=== PATIENT | female | born 1955 | race Two or more races ===

== ENCOUNTER 2020-11-11 07:44 | Outpatient (REF) | payer OTHER, SELFPAY ==
[2020-11-11 08:37] LABS: Estimated Average Glucose 128 mg/dL; Hemoglobin A1c % 6.1 %
[2020-11-11 08:42] LABS: Anion Gap 10 (12-20); Blood Urea Nitrogen 17 mg/dL (9-16); Calcium 9.3 mg/dL (8.4-10.2); Carbon Dioxide 30 mmol/L (22-29); Chloride 100 mmol/L (96-108); Cholesterol 158 mg/dL; Estimated Glomerular Filt Rate > 60; Glucose Fasting 118 mg/dL (60-99); HDL Cholesterol 55 mg/dL; LDL Cholesterol Calculated 80 mg/dl; Potassium 4.3 mmol/L (3.3-5.1); Sodium 136 mmol/L (135-145); Triglycerides 117 mg/dL
== END 2020-11-11 07:45 | disposition home or self-care (01) ==
LOC: HO.LAB 07:44
PROVIDERS: PCP Internal Medicine; Visit Provider Internal Medicine
DX: E78.00 Pure hypercholesterolemia, unspecified (principal); I10 Essential (primary) hypertension; R73.01 Impaired fasting glucose
CPT/HCPCS: 36415; 80048; 80061; 83036

== ENCOUNTER 2020-11-20 15:39 | Outpatient (REF) | payer OTHER, SELFPAY ==
--- NOTE | ~2020-11-20 | MM_ITS ---
EXAMINATION: MM SCREENING DIGITAL BREAST TOMOSYNTHESIS, BILATERAL CLINICAL INFORMATION: Screening. Asymptomatic. The lifetime risk of breast cancer based on the Tyrer-Cuzick Model is 6%. COMPARISON: Mammography: 10/09/2019, 08/28/2018, 08/07/2017 TECHNIQUE: Digital breast tomosynthesis is performed in both the craniocaudal and mediolateral oblique views along with computer-aided detection (CAD). Synthesized 2D images are generated from the tomosynthesis. FINDINGS: There are scattered areas of fibroglandular density (ACR BI-RADS breast composition Category b). Breast tissue borders on heterogeneously dense. There are no significant masses, abnormal calcifications, or other abnormalities. There are biopsy clip markers again present left breast mid upper outer quadrant and right breast central posterior aspect. Regional punctate calcifications central upper inner right breast are stable. There is no interval mass or architectural abnormality or abnormal calcifications. The axilla and skin contours are unremarkable. MM/MM tomosynthesis screening BI IMPRESSION: No significant changes from prior exams. ASSESSMENT: BI-RADS 2: Benign RECOMMENDATION: Routine annual mammography screening. This patient's information was entered into a reminder system with a target due date for their next mammogram.
== END 2020-11-20 15:40 | disposition home or self-care (01) ==
LOC: HO.MAMMO 15:39
PROVIDERS: Visit Provider Internal Medicine
DX: Z12.31 Encounter for screening mammogram for malignant neoplasm of breast (principal)
CPT/HCPCS: 77063; 77067

== ENCOUNTER 2021-05-10 06:42 | Outpatient (REF) | payer OTHER, SELFPAY ==
[2021-05-10 07:06] LABS: MANUAL DIFF FLAG NO
[2021-05-10 07:18] LABS: Basophils Percent Auto 0.6 % (0-2); Eosinophils Absolute Auto 0.1 X10*3/uL (0.0-0.4); Eosinophils Percent Auto 0.8 % (0-4); Hematocrit 41.8 % (37-47); Hemoglobin 13.6 g/dl (12.0-16.0); Imm Gran Abs Auto 0.02 X10*3/uL (0.00-0.03); Imm Gran Pct Auto 0.3 % (0.0-0.4); Lymphocytes Absolute Auto 1.9 X10*3/uL (1.2-4.9); Lymphocytes Percent Auto 29.3 % (20-40); Mean Corpuscular HGB Conc 32.5 g/dl (31.0-35.0); Mean Corpuscular Volume 86.2 fL (80-98); Monocytes Absolute Auto 0.4 X10*3/uL (0.1-1.2); Monocytes Percent Auto 6.1 % (2-11); Neutrophils Absolute Auto 4.1 X10*3/uL (2.0-8.3); Neutrophils Percent Auto 62.9 % (45-73); Platelet Count 237 X10*3/uL (160-400); Red Blood Count 4.85 X10*6/uL (4.20-5.50); Red Cell Distribution Width 12.1 % (11.0-16.0); White Blood Count 6.6 X10*3/uL (4.8-10.8)
[2021-05-10 07:36] LABS: Alanine Aminotransferase 24 U/L (0-31); Albumin Level 4.2 g/dL (3.5-5.0); Alkaline Phosphatase 97 U/L (39-117); Anion Gap 12 (12-20); Aspartate Amino Transferase 20 U/L (5-31); Bilirubin Total 0.3 mg/dL (0.0-1.0); Blood Urea Nitrogen 15 mg/dL (9-16); Calcium 9.7 mg/dL (8.4-10.2); Carbon Dioxide 28 mmol/L (22-29); Chloride 107 mmol/L (96-108); Cholesterol 175 mg/dL; Estimated Glomerular Filt Rate > 60; Glucose Fasting 122 mg/dL (60-99); HDL Cholesterol 57 mg/dL; LDL Cholesterol Calculated 97 mg/dl; Potassium 5.3 mmol/L (3.3-5.1); Sodium 142 mmol/L (135-145); Total Protein 7.2 g/dL (6.5-8.0); Triglycerides 107 mg/dL
[2021-05-10 09:10] LABS: Glucose Urine UA NEG (NEG); Leukocyte Esterase Urine NEG (NEG); Nitrite Urine NEG (NEG); PH 5.5 (5.0-8.0); Specific Gravity - Urine 1.025 (1.005-1.025); Urine Blood NEG (NEG); Urine Ketones NEG (NEG); Urine Protein NEG (NEG-TRACE)
[2021-05-10 09:12] LABS: Appearance Urine CLEAR; Color Urine YELLOW
== END 2021-05-10 06:43 | disposition home or self-care (01) ==
LOC: HO.LAB 06:42
PROVIDERS: PCP Internal Medicine; Visit Provider Internal Medicine
DX: I10 Essential (primary) hypertension (principal); E78.00 Pure hypercholesterolemia, unspecified; R73.01 Impaired fasting glucose
CPT/HCPCS: 36415; 80053; 80061; 81003; 85025

== ENCOUNTER 2021-11-23 07:41 | Outpatient (REF) | payer OTHER, SELFPAY ==
--- NOTE | ~2021-11-23 | MM_ITS ---
EXAMINATION: MM SCREENING DIGITAL BREAST TOMOSYNTHESIS, BILATERAL CLINICAL INFORMATION: Screening. Asymptomatic. The lifetime risk of breast cancer based on the Tyrer-Cuzick Model is 6%. COMPARISON: Mammography: 11/20/2020, 10/09/2019, 08/28/2018 TECHNIQUE: Digital breast tomosynthesis is performed in both the craniocaudal and mediolateral oblique views along with computer-aided detection (CAD). Synthesized 2D images are generated from the tomosynthesis. FINDINGS: There are scattered areas of fibroglandular density (ACR BI-RADS breast composition Category b). Breast tissue composition borders on heterogeneously dense. Parenchymal pattern is similar to prior exams and there is no interval mass or architectural abnormality or developing density. Left breast again shows clip marker mid upper outer quadrant and right breast with marker posterior central inner breast. Calcifications central inner right breast are stable. There are a few scattered calcifications otherwise both breasts similar to prior exams. No significant changes. MM/MM tomosynthesis screening BI IMPRESSION: No significant changes from prior studies. ASSESSMENT: BI-RADS 2: Benign RECOMMENDATION: Routine annual mammography screening. This patient's information was entered into a reminder system with a target due date for their next mammogram.
== END 2021-11-23 07:42 | disposition home or self-care (01) ==
LOC: HO.MAMMO 07:41
PROVIDERS: Visit Provider Internal Medicine
DX: Z12.31 Encounter for screening mammogram for malignant neoplasm of breast (principal)
CPT/HCPCS: 77063; 77067

== ENCOUNTER 2022-02-15 07:40 | Outpatient (REF) | payer OTHER, SELFPAY ==
[2022-02-15 07:54] LABS: MANUAL DIFF FLAG NO
[2022-02-15 08:02] LABS: Basophils Absolute Auto 0.1 X10*3/uL (0.0-0.2); Eosinophils Absolute Auto 0.1 X10*3/uL (0.0-0.4); Eosinophils Percent Auto 1.2 % (0-4); Hematocrit 42.3 % (37.0-47.0); Hemoglobin 13.9 g/dl (12.0-16.0); Imm Gran Abs Auto 0.01 X10*3/uL (0.00-0.03); Imm Gran Pct Auto 0.2 % (0.0-0.4); Lymphocytes Absolute Auto 1.8 X10*3/uL (1.2-4.9); Lymphocytes Percent Auto 30.5 % (20-40); Mean Corpuscular HGB Conc 32.9 g/dl (31.0-35.0); Mean Corpuscular Hemoglobin 28.3 pg (27.0-33.0); Mean Corpuscular Volume 86.2 fL (80.0-98.0); Mean Platelet Volume 10.1 fL (9.4-12.3); Monocytes Absolute Auto 0.4 X10*3/uL (0.1-1.2); Monocytes Percent Auto 5.8 % (2-11); Neutrophils Absolute Auto 3.7 x10*3/uL (2.0-8.3); Neutrophils Percent Auto 61.3 % (45-73); Platelet Count 217 X10*3/uL (160-400); Red Blood Count 4.91 X10*6/uL (4.20-5.50); Red Cell Distribution Width 12.1 % (11.0-16.0)
[2022-02-15 08:17] LABS: Estimated Average Glucose 131 mg/dL; Hemoglobin A1c % 6.2 %
[2022-02-15 08:27] LABS: Alanine Aminotransferase 26 U/L (0-31); Albumin Level 3.9 g/dL (3.5-5.0); Alkaline Phosphatase 93 U/L (39-117); Anion Gap 11 (12-20); Aspartate Amino Transferase 20 U/L (5-31); Bilirubin Total 0.4 mg/dL (0.0-1.0); Blood Urea Nitrogen 11 mg/dL (9-16); Calcium 9.6 mg/dL (8.4-10.2); Carbon Dioxide 28 mmol/L (22-29); Chloride 104 mmol/L (96-108); Cholesterol 161 mg/dL; Estimated Glomerular Filt Rate > 60; Glucose Fasting 124 mg/dL (60-99); HDL Cholesterol 52 mg/dL; LDL Cholesterol Calculated 94 mg/dl; Sodium 138 mmol/L (135-145); Total Protein 6.9 g/dL (6.5-8.0); Triglycerides 79 mg/dL
[2022-02-15 08:49] LABS: TSH reflex Free T4 1.24 uIU/mL (0.32-4.0); Vitamin D 25-OH Total 49.1 ng/mL (>30)
[2022-02-15 09:26] LABS: Appearance Urine CLEAR; Color Urine YELLOW; Glucose Urine UA NEG (NEG); Leukocyte Esterase Urine TRACE (NEG); Nitrite Urine NEG (NEG); Specific Gravity - Urine 1.015 (1.005-1.025); Urine Blood NEG (NEG); Urine Ketones NEG (NEG); Urine Protein NEG (NEG-TRACE)
[2022-02-15 09:44] LABS: RBC Urine 0 /HPF (0); Squamous Epithelial Cell Urine TRACE /LPF; WBC Urine 0-2 /HPF (0-4)
== END 2022-02-15 07:41 | disposition home or self-care (01) ==
LOC: HO.LAB 07:40
PROVIDERS: PCP Internal Medicine; Visit Provider Internal Medicine
DX: I10 Essential (primary) hypertension (principal); E78.00 Pure hypercholesterolemia, unspecified; E87.5 Hyperkalemia; R73.01 Impaired fasting glucose; E55.9 Vitamin D deficiency, unspecified
CPT/HCPCS: 36415; 80053; 80061; 81001; 82306; 83036; 84443; 85025

== ENCOUNTER 2022-12-01 08:40 | Outpatient (REF) | payer OTHER, SELFPAY ==
--- NOTE | ~2022-12-01 | MM_ITS ---
EXAMINATION: MM SCREENING DIGITAL BREAST TOMOSYNTHESIS, BILATERAL CLINICAL INFORMATION: Screening. Asymptomatic. The lifetime risk of breast cancer based on the Tyrer-Cuzick Model is 6.1%. COMPARISON: Mammography: November 23, 2021 and studies dating back to July 25, 2016 TECHNIQUE: Digital breast tomosynthesis is performed in both the craniocaudal and mediolateral oblique views along with computer-aided detection (CAD). Synthesized 2D images are generated from the tomosynthesis. FINDINGS: The breasts are heterogeneously dense, which may obscure small masses (ACR BI-RADS breast composition Category c). There are no significant masses, abnormal calcifications, or other abnormalities. MM/MM tomosynthesis screening BI IMPRESSION: No significant changes ASSESSMENT: BI-RADS 1: Negative RECOMMENDATION: Routine annual mammography screening. This patient's information was entered into a reminder system with a target due date for their next mammogram.
== END 2022-12-01 08:41 | disposition home or self-care (01) ==
LOC: HO.MAMMO 08:40
PROVIDERS: Visit Provider Internal Medicine
DX: Z12.31 Encounter for screening mammogram for malignant neoplasm of breast (principal)
CPT/HCPCS: 77063; 77067

== ENCOUNTER 2023-02-14 07:50 | Outpatient (REF) | payer OTHER, SELFPAY ==
--- NOTE | ~2023-02-14 | XR_ITS ---
EXAMINATION: XR FOOT, LEFT CLINICAL INFORMATION: Heel pain COMPARISON: None available. TECHNIQUE: AP, lateral, and oblique views of the left foot. FINDINGS: There is no evidence of acute fracture or dislocation of the left foot. No destructive bony lesions identified. Joint spaces are maintained. Plantar and Achilles calcaneal spurs present. There appears be a small erosion about the dorsal aspect of the first metatarsal head. XR/XR foot LT min 3V IMPRESSION: Calcaneal spurs. Small erosion dorsal aspect first metatarsal head.
[2023-02-14 08:08] LABS: MANUAL DIFF FLAG NO
[2023-02-14 08:29] LABS: Basophils Absolute Auto 0.1 X10*3/uL (0.0-0.2); Basophils Percent Auto 0.8 % (0-2); Eosinophils Absolute Auto 0.1 X10*3/uL (0.0-0.4); Eosinophils Percent Auto 1.3 % (0-4); Hematocrit 42.5 % (37.0-47.0); Hemoglobin 14.1 g/dl (12.0-16.0); Imm Gran Abs Auto 0.01 X10*3/uL (0.00-0.03); Imm Gran Pct Auto 0.2 % (0.0-0.4); Lymphocytes Absolute Auto 2.1 X10*3/uL (1.2-4.9); Lymphocytes Percent Auto 33.2 % (20-40); Mean Corpuscular HGB Conc 33.2 g/dl (31.0-35.0); Mean Corpuscular Hemoglobin 28.3 pg (27.0-33.0); Mean Corpuscular Volume 85.3 fL (80.0-98.0); Mean Platelet Volume 9.8 fL (9.4-12.3); Monocytes Absolute Auto 0.4 X10*3/uL (0.1-1.2); Monocytes Percent Auto 5.8 % (2-11); Neutrophils Absolute Auto 3.7 x10*3/uL (2.0-8.3); Neutrophils Percent Auto 58.7 % (45-73); Platelet Count 246 X10*3/uL (160-400); Red Blood Count 4.98 X10*6/uL (4.20-5.50); Red Cell Distribution Width 12.2 % (11.0-16.0); White Blood Count 6.4 X10*3/uL (4.8-10.8)
[2023-02-14 08:35] LABS: Estimated Average Glucose 128 mg/dL; Hemoglobin A1c % 6.1 %
[2023-02-14 09:00] LABS: Alanine Aminotransferase 28 U/L (0-31); Alkaline Phosphatase 90 U/L (39-117); Anion Gap 10 (12-20); Aspartate Amino Transferase 20 U/L (5-31); Bilirubin Total 0.7 mg/dL (0.0-1.0); Blood Urea Nitrogen 15 mg/dL (9-16); Calcium 9.3 mg/dL (8.4-10.2); Carbon Dioxide 30 mmol/L (22-29); Chloride 104 mmol/L (96-108); Cholesterol 177 mg/dL; Estimated Glomerular Filt Rate > 60; Glucose Fasting 120 mg/dL (60-99); HDL Cholesterol 52 mg/dL; LDL Cholesterol Calculated 103 mg/dl; Potassium 4.3 mmol/L (3.3-5.1); Sodium 140 mmol/L (135-145); Triglycerides 112 mg/dL
[2023-02-14 09:19] LABS: TSH reflex Free T4 1.44 uIU/mL (0.32-4.0); Vitamin D 25-OH Total 43.9 ng/mL (>30)
[2023-02-14 09:43] LABS: Appearance Urine Clear; Color Urine Yellow; Glucose Urine UA Negative (Negative); Leukocyte Esterase Urine Moderate (2+) (Negative); Nitrite Urine Negative (Negative); PH 6.5 (5.0-9.0); UMIC TRIGGER UACC YES; Urine Blood Negative (Negative); Urine Ketones Negative (Negative); Urine Protein Negative (Neg-Trace)
[2023-02-14 10:28] LABS: Bacteria Urine 1+ (None Seen); Hyaline Casts Urine 0-2 /LPF (0-2); RBC Urine 0-2 /HPF (0-2); WBC Urine 0-5 /HPF (0-5)
== END 2023-02-14 07:51 | disposition home or self-care (01) ==
LOC: HO.LAB 07:50
PROVIDERS: PCP Internal Medicine; Visit Provider Internal Medicine
DX: E78.00 Pure hypercholesterolemia, unspecified (principal); E11.9 Type 2 diabetes mellitus without complications; I10 Essential (primary) hypertension; E55.9 Vitamin D deficiency, unspecified; M79.672 Pain in left foot
CPT/HCPCS: 36415; 73630; 80053; 80061; 81001; 82306; 83036; 84443; 85025

== ENCOUNTER 2023-05-09 08:48 | Outpatient (AMB) | payer OTHER, SELFPAY ==
--- NOTE | 2023-05-09 09:30 | A.OFFVIS_ITS ---
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 Patient is not diabetic, not a smoker, no hx blood clots. 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 Allergies No Known Allergies [No Known Allergies*] Allergy (Verified 05/09/23 09:34) HPI BUSINESS EXECUTIVE VV HPI Details Very pleasant 67-year-old angu[place] female patient presents for painful varicose veins. Complaints include pain over varicosities, swelling of lower extremities, cramping, fatigue, and heaviness of the lower extremities. 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 It is noted more so in right leg. Patient denies any previous venous surgery or injections. Patient denies any history of DVT/ PE. Patient denies any history of phlebitis. Trial of compression includes - [id number] They now present for vascular evaluation regarding their varicose veins. [facility] Medical History Benign essential hypertension Hyperkalemia Impaired fasting glucose Pure hypercholesterolemia Surgical History History of colonoscopy Family History Father No problems noted. Mother Dementia Family/Other Diabetes Hypertension Social History Housing: Condominium Alcohol intake: never Patient Tobacco Use Status: Never used Tobacco e-Cigarette/Vaping Use: Never Used Second Hand Smoke Exposure: Yes service: No Current occupational status: employed Cognitive needs: No Hearing needs: No Vision needs: No Review of Systems Const Reports as per HPI ENT Reports no additional complaints Card Denies chest pain, Denies chest pain at rest and Denies chest pain with activity Resp Denies chest congestion and Denies cough GI Reports no additional complaints Musc Details: pain over varicosities, aching of lower extremities, swelling, cramping, heaviness and tiredness, itching Denies abnormal gait Skin/Breast Reports pruritus and Denies wounds Neuro Reports no additional complaints and Denies abnormal gait Psych Denies no additional complaints Physical Exam Const General: cooperative, healthy appearing and comfortable Orientation/consciousness: oriented to person, oriented to place and oriented to time Neck Carotids: no bruits Chest Chest palpation & inspection: normal inspection of the chest and normal palpation of entire chest wall Resp Effort & Inspection: normal respiratory effort and able to speak in complete sentences Cardio Rate: regular rate Heart sounds: S1 normal heart sound present and S2 normal heart sound present Peripheral pulses: Peripheral pulses 2+ throughout GI Inspection: Yes normal to inspection Skin Other: +2 edema, large rope-like varicosities greater than 4 mm right calf and thigh CEAP Classification C4 - skin color changes Ep - Etiology Primary As - superficial veins P - reflux General skin exam: dry skin Neuro General: oriented to person, oriented to place and oriented to time Extrem Right lower extremity: full ROM, normal capillary refill and edema Left lower extremity: full ROM, normal capillary refill and edema Psych Mental Status: mental status grossly normal Assessment & Plan Assessment & Plan (1) Varicose veins of right lower extremity with inflammation: Code(s): I83.11 - Varicose veins of right lower extremity with inflammation Plan: In short, the patient has evidence of venous insufficiency. I have discussed the pathophysiology with the patient. In addition I have provided informational material regarding venous disease to the patient. We have discussed conservative measures including compression, elevation, and exercise. I have also provided a handout regarding appropriate use of compression stockings and where to purchase good compression stockings as well. I have taken the liberty of ordering venous insufficiency testing with the patient. They will follow up with me after testing. The patient had an opportunity to ask questions regarding the treatment plan. All questions were answered. Imaging studies, laboratory studies and physical exam results were discussed and reviewed in detail. No major barriers to understanding were identified. The patient expressed understanding and agreement with the above treatment plan. The patient is aware they should contact our office by phone for worsening of the current condition or the appearance of new symptoms. Thank you for allowing me to participate in the vascular care of this patient. If you have any questions or concerns regarding the treatment for the above condition please do not hesitate to contact me. The office telephone contact is [phone]. This note is constructed using voice recognition software. While every effort has been made to ensure accuracy, flask fitter errors may have been included. Thank you for allowing me to participate in the care of your patient. Yours sincerely, Mahesh Yanez MD, FACS, R.P.V.I. Orders: Orders US venous duplex LE BI 1 Week I83.11 - Varicose veins of right lower extremity with inflammation Coding Level of Care Code New Pt Level 4 (38648) Diagnoses Varicose veins of right lower extremity with inflammation I83.11
== END 2023-05-09 10:30 | disposition home or self-care (01) ==
PROVIDERS: PCP Internal Medicine; Visit Provider Surgery Vascular Surgery
DX: I83.11 Varicose veins of right lower extremity with inflammation (principal)
CPT/HCPCS: 99204

== ENCOUNTER → 2023-05-09 08:48 | Outpatient (BNVA) | payer OTHER, SELFPAY | PROVIDERS: PCP Internal Medicine; Visit Provider Surgery Vascular Surgery ==

== ENCOUNTER 2023-05-15 12:30 | Outpatient (REF) | payer OTHER, SELFPAY ==
--- NOTE | ~2023-05-15 | US_ITS ---
EXAMINATION: US LOWER EXTREMITY VENOUS (REFLUX EXAM), BILATERAL CLINICAL INDICATION: Chronic venous insufficiency with lower extremity varicose veins with inflammation COMPARISON: None. TECHNIQUE: Color flow triplex imaging and compression Doppler was performed to evaluate both the deep and the superficial systems bilaterally. To evaluate the superficial system, the examination was performed in the upright position. Color-flow Doppler ultrasound and compression ultrasound were utilized. In addition, maneuvers were utilized to demonstrate reflux. FINDINGS: 1. DEEP VENOUS ULTRASOUND OF THE RIGHT LOWER EXTREMITY: Common Femoral Vein: Compressible, normal respiratory variation and augmented flow. Femoral Vein: Compressible, normal color flow and augmentation. Popliteal Vein: Compressible, normal augmentation. Deep Reflux: There is no evidence of reflux in the deep system in either the common femoral vein or the popliteal vein. There is no evidence of a Magaña's cyst. 2. SUPERFICIAL ULTRASOUND WITH DOPPLER OF RIGHT LOWER EXTREMITY: GREAT SAPHENOUS VEIN: Saphenofemoral Junction: 0.8 cm; Reflux: 1100 ms Proximal Thigh: 0.5 cm; Reflux: 1468 ms Mid Thigh: 0.5 cm; Reflux: 2120 ms Above Knee: 0.2 cm; Reflux: 968 ms At Knee: 0.2 cm; Reflux: 1316 ms Below Knee: 0.4 cm; Reflux: 1028 ms Mid Calf: 0.1 cm; Reflux: 0 ms Ankle: 0.1 cm; Reflux: 0 ms DUPLICATED MEDIAL GREAT SAPHENOUS VEIN: Diameter: None imaged Reflux: NA DUPLICATED LATERAL GREAT SAPHENOUS VEIN: Diameter: 0.2 cm Reflux: None SMALL SAPHENOUS VEIN: Proximal: 0.2 cm; Reflux: 0 ms Distal: 0.2 cm; Reflux: 0 ms VEIN OF GIACOMINI: Size: NA Reflux: NA PERFORATORS: Location: Distal calf Size: 0.3 cm Reflux: None VARICOSITIES: Location: Distal thigh and proximal calf arising from the great saphenous vein Size: 0.4 to 0.6 cm Reflux: Ranging from 892 ms to 1292 ms 3. DEEP VENOUS ULTRASOUND OF THE LEFT LOWER EXTREMITY: Common Femoral Vein: Compressible, normal respiratory variation and augmented flow. Femoral Vein: Compressible, normal color flow and augmentation. Popliteal Vein: Compressible, normal augmentation. Deep Reflux: There is no evidence of reflux in the deep system in either the common femoral vein or the popliteal vein. There is no evidence of a Magaña's cyst. 4. SUPERFICIAL ULTRASOUND WITH DOPPLER OF LEFT LOWER EXTREMITY: GREAT SAPHENOUS VEIN: Saphenofemoral Junction: 0.7 cm; Reflux: 0 ms Proximal Thigh: 0.3 cm; Reflux: 0 ms Mid Thigh: 0.2 cm; Reflux: 1564 ms Above Knee: 0.2 cm; Reflux: 0 ms At Knee: 0.1 cm; Reflux: 0 ms Below Knee: 0.2 cm; Reflux: 708 ms Mid Calf: 0.1 cm; Reflux: 0 ms Ankle: 0.2 cm; Reflux: 0 ms DUPLICATED MEDIAL GREAT SAPHENOUS VEIN: Diameter: None imaged Reflux: NA DUPLICATED LATERAL GREAT SAPHENOUS VEIN: Diameter: 0.3 Reflux: NA SMALL SAPHENOUS VEIN: Proximal: 0.3 cm; Reflux: 0 ms Distal: 0.2 cm; Reflux: 0 ms VEIN OF GIACOMINI: Size: NA Reflux: NA PERFORATORS: Location: Mid calf Size: 0.4 cm Reflux: On VARICOSITIES: Location: None significant Size: NA Reflux: NA US/US venous duplex LE BI IMPRESSION: Right: Severe reflux throughout the right great saphenous vein with large branching varicosities in the distal thigh and calf. Left: Segmental areas of reflux in the left great saphenous vein in the mid to thigh and proximal calf. Greater saphenous vein is otherwise normal in size. No significant varicosities in the left lower extremity
== END 2023-05-15 12:31 | disposition home or self-care (01) ==
LOC: HO.US 12:30
PROVIDERS: PCP Internal Medicine; Visit Provider Surgery Vascular Surgery
DX: I83.11 Varicose veins of right lower extremity with inflammation (principal)
CPT/HCPCS: 93970

== ENCOUNTER 2023-06-20 10:34 | Outpatient (AMB) | payer OTHER, SELFPAY ==
--- NOTE | 2023-06-20 10:38 | MHC.OFFVIS ---
Intake Vital Signs 06/20/23 10:44 Height 5 ft 1 in Weight 130 lb BMI 24.6 Intake Visit Reasons: Follow up 05/22 Intake Note: fu 1 month VV pt states veins feel like they are growing but she does not feel any pain or swelling at the moment.she here today to discus venous ultrasound results Allergies No Known Allergies [No Known Allergies*] Allergy (Verified 06/20/23 10:44) HPI Follow up 05/22 HPI Details Very pleasant 67-year-old female presents for follow-up regarding venous insufficiency. Her right leg in particular has been a source of pain and discomfort. She has significant swelling of the right lower extremity. 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 She now presents for follow-up with venous insufficiency testing. Of note compression stockings have provided minimal relief. [facility] Medical History Benign essential hypertension Hyperkalemia Impaired fasting glucose Pure hypercholesterolemia Surgical History History of colonoscopy Family History Father No problems noted. Mother Dementia Family/Other Diabetes Hypertension Social History Housing: Condominium Alcohol intake: never Patient Tobacco Use Status: Never used Tobacco e-Cigarette/Vaping Use: Never Used Second Hand Smoke Exposure: Yes service: No Current occupational status: employed Cognitive needs: No Hearing needs: No Vision needs: No Review of Systems Const Reports as per HPI ENT Reports no additional complaints Card Denies chest pain, Denies chest pain at rest and Denies chest pain with activity Resp Denies chest congestion and Denies cough GI Reports no additional complaints Musc Details: pain over varicosities, aching of lower extremities, swelling, cramping, heaviness and tiredness, itching Denies abnormal gait Skin/Breast Reports pruritus and Denies wounds Neuro Reports no additional complaints and Denies abnormal gait Psych Denies no additional complaints Physical Exam Vital Signs: BMI result Body Mass Index 24.6 Const General: cooperative, healthy appearing and comfortable Orientation/consciousness: oriented to person, oriented to place and oriented to time Neck Carotids: no bruits Chest Chest palpation & inspection: normal inspection of the chest and normal palpation of entire chest wall Resp Effort & Inspection: normal respiratory effort and able to speak in complete sentences Cardio Rate: regular rate Heart sounds: S1 normal heart sound present and S2 normal heart sound present Peripheral pulses: Peripheral pulses 2+ throughout GI Inspection: Yes normal to inspection Skin Other: +2 edema, large rope-like varicosities greater than 4 mm CEAP Classification C4 - skin color changes Ep - Etiology Primary As - superficial veins P - reflux General skin exam: dry skin Neuro General: oriented to person, oriented to place and oriented to time Extrem Right lower extremity: full ROM, normal capillary refill and edema Left lower extremity: full ROM, normal capillary refill and edema Psych Mental Status: mental status grossly normal Results Reviewed Results Reviewed: Brief summary of venous insufficiency testing is as follows: right great saphenous vein: Positive right small saphenous vein: negative right accessory vein: none present left great saphenous vein: Positive left small saphenous vein: negative left accessory vein: none present Please note there is no evidence of any venous aneurysms or significant tortuosity Assessment & Plan Assessment & Plan (1) Varicose veins of right lower extremity with inflammation: Code(s): I83.11 - Varicose veins of right lower extremity with inflammation Plan: This patient has varicose veins with inflammation. They continue to be a source of discomfort for the patient. The patient has tried conservative treatment with compression, leg elevation and exercise program for over 3 months time. They have been compliant with all treatment. This has provided minimal relief for the patient. I do not anticipate this course of treatment will alter the underlying etiology. The patient has been scheduled for lower extremity venous treatment inclusive of --- right great saphenous vein Cyanoacralate ablation. Risks, benefits, and complications of this procedure has been discussed in detail with the patient including but not limited to bleeding, infection, and the development of a DVT. The patient has demonstrated a clear understanding and has consented. We will schedule the patient as soon as possible. Thank you for allowing us to participate in this patient's care. If there are any questions or concerns please do not hesitate to contact us. Coding Level of Care Code Est Pt Level 4 (98177) Diagnoses Varicose veins of right lower extremity with inflammation I83.11
[2023-06-20 10:44] VITALS: BMI 24.6
== END 2023-06-20 11:48 | disposition home or self-care (01) ==
PROVIDERS: PCP Internal Medicine; Visit Provider Surgery Vascular Surgery
DX: I83.11 Varicose veins of right lower extremity with inflammation (principal)
CPT/HCPCS: 99214

== ENCOUNTER → 2023-06-20 10:34 | Outpatient (BNVA) | payer OTHER, SELFPAY | PROVIDERS: PCP Internal Medicine; Visit Provider Surgery Vascular Surgery ==

== ENCOUNTER 2023-07-21 07:44 | Outpatient (AMB) | payer OTHER, SELFPAY ==
[2023-07-21 07:54] VITALS: BMI 24.6
--- NOTE | 2023-07-21 07:54 | MHC.OFFVIS ---
Intake Vital Signs 07/21/23 07:54 Height 5 ft 1 in Weight 130 lb BMI 24.6 Intake Visit Reasons: Right GSV Venaseal Allergies No Known Allergies [No Known Allergies*] Allergy (Verified 07/21/23 07:55) [facility] Medical History Hyperkalemia Impaired fasting glucose Benign essential hypertension Pure hypercholesterolemia Surgical History History of colonoscopy Family History Father No problems noted. Mother Dementia Family/Other Diabetes Hypertension Social History Housing: Condominium Alcohol intake: never Patient Tobacco Use Status: Never used Tobacco e-Cigarette/Vaping Use: Never Used Second Hand Smoke Exposure: Yes service: No Current occupational status: employed Cognitive needs: No Hearing needs: No Vision needs: No Physical Exam Vital Signs: BMI result Body Mass Index 24.6 Office Procedures Vascular Office Procedure Details Details: Diagnosis: Right Leg varicose veins with inflammation Procedure: Endovenous Ablation of the right Great Saphenous Vein with VenaSeal Closure System Anesthesia: Local infiltration 5 cc, Estimated Blood Loss: min Specimen: none Duplex ultrasound was used to map out the insufficient saphenous vein, and access was determined and marked on the overlying skin. The depth and diameter of the vein(s) to be treated was documented. The patient was placed supine on the procedure table and the leg was prepped and draped using sterile technique. Ultasound guidance was again used to localize the access site. 1% lidocaine was injected as a local anesthetic in the subcutaneous tissues at the target location in the GSV in the lower leg. Using ultrasound guidance, access was gained at this location with the 19 gauge thin walled access needle and followed by introduction of a short guidewire, location confirmed with ultrasound. A small, 3 mm incision was made at the access site to allow for introduction and placement of the 7 Fr x7cm introducer/dilator. The dilator and guidewire were removed. The 0.035 guidewire from the VenaSeal kit was then introduced and positioned at the saphenofemoral junction using ultrasound guidance. The 80 cm 7 Fr introducer sheath/dilator was positioned 5cm from the saphenofemoral junction. The guidewire and dilator were removed, and the remaining sheath was flushed with sterile saline, with the syringe remaining in place prior to the next steps. The cyanoacrylate adhesive was precisely primed into the 5 F delivery catheter and this catheter/syringe combination was attached within the dispenser gun. This assembly was introduced through the 7F sheath and positioned 5 cm caudal of the saphenofemoral junction under ultrasound guidance. The steps from the IFU were followed for dispensing amounts, locations and compression times, 2 aliquots proximally with 3 minutes of compression, and 1 aliquot every 3 cm distally with 30 sec of compression along the course of the vessel. Following the last injection and compression sequence, the catheter and introducer sheath were pulled out from the access site. Hemostasis was achieved with manual compression and an adhesive bandage was applied to the incision. Ultrasound confirmed complete coaptation and closure of the treated segments of the GSV, and the absence of any DVT at the saphenofemoral junction. Treatment time was approximately 6 minutes and the vein length treated was 32 cm. The drapes were removed and the patient cleaned and prepared for discharge. Post op ultrasound check is scheduled for 48-72 hours and the patient was given written post-op instructions. 21035 - Endoven Ther Chem Adhes 1st All charges added?: Procedure code (CPT) selection complete Coding Level of Care Code Procedure Only CPT Codes Details - Vascular 3: 68666 - Endoven Ther Chem Adhes 1st ([id number])
== END 2023-07-21 08:58 | disposition home or self-care (01) ==
PROVIDERS: PCP Internal Medicine; Visit Provider Surgery Vascular Surgery
DX: I83.11 Varicose veins of right lower extremity with inflammation (principal)
CPT/HCPCS: 36482

== ENCOUNTER → 2023-07-21 07:44 | Outpatient (BNVA) | payer OTHER, SELFPAY | PROVIDERS: PCP Internal Medicine; Visit Provider Surgery Vascular Surgery | DX: I83.11 Varicose veins of right lower extremity with inflammation (principal) | CPT/HCPCS: 36482 ==

== ENCOUNTER 2023-07-24 09:41 | Outpatient (REF) | payer OTHER, SELFPAY ==
--- NOTE | ~2023-07-24 | US_ITS ---
EXAMINATION: US VENOUS ULTRASOUND WITH DOPPLER LOWER EXTREMITY, RIGHT CLINICAL INFORMATION: Pain in right leg. Rule out DVT right lower extremity status post right great saphenous vein Venaseal 07/21/2023. COMPARISON: Venous ultrasound 05/15/2023. TECHNIQUE: Ultrasound of the deep veins is performed from the hip to the calf with compression sonography and color and pulse Doppler assessment. Spectral analysis with color-flow imaging is performed. FINDINGS: There is normal venous compression and respiratory variation and augmented flow. The visualized common femoral vein, superficial femoral vein, profunda femoral vein, popliteal vein, and the trifurcation region shows no evidence of deep venous thrombosis. There is no significant popliteal fossa cyst. The great saphenous vein is closed beginning 2.0 cm below the saphenofemoral junction. US/US venous duplex LE RT IMPRESSION: The great saphenous vein is closed getting 2.0 cm below the saphenofemoral junction. No DVT demonstrated in the right lower extremity.
== END 2023-07-24 09:42 | disposition home or self-care (01) ==
LOC: HO.US 09:41
PROVIDERS: PCP Internal Medicine; Visit Provider Surgery Vascular Surgery
DX: M79.604 Pain in right leg (principal)
CPT/HCPCS: 93971

== ENCOUNTER 2023-08-03 12:27 | Outpatient (AMB) | payer OTHER, SELFPAY ==
--- NOTE | 2023-08-03 12:59 | A.OFFVIS_ITS ---
Intake Intake Visit Reasons: 2 week follow up Right GSV Venaseal 07/21/23 Intake Note: 2 week fu right GSV Venaseal on 07/21/23 and hx of on 05/15/23 Pt states she doing good and is already started to see the improvement from the procedure Allergies No Known Allergies [No Known Allergies*] Allergy (Verified 08/03/23 13:01) HPI 2 week follow up Right GSV Venaseal 07/21/23 HPI Details Very pleasant 67-year-old female presents for follow-up status post right great saphenous vein ablation. She reports she is doing extremely well. She is ambulating much better. She continues to work at a [employer]. She now presents for routine postprocedure follow-up. Of note postprocedure ultrasound was negative for DVT. [facility] Medical History Hyperkalemia Impaired fasting glucose Benign essential hypertension Pure hypercholesterolemia Surgical History History of colonoscopy Family History Father No problems noted. Mother Dementia Family/Other Diabetes Hypertension Social History Housing: Condominium Alcohol intake: never Patient Tobacco Use Status: Never used Tobacco e-Cigarette/Vaping Use: Never Used Second Hand Smoke Exposure: Yes service: No Current occupational status: employed Cognitive needs: No Hearing needs: No Vision needs: No Review of Systems Const All systems reviewed & are unremarkable except as noted in HPI and below Reports no additional complaints ENT Reports Normal hearing present Card Denies chest pain, Denies chest pain at rest, Denies chest pain with activity and Denies pedal edema Resp Denies cough GI Denies abdominal pain Musc Denies abnormal gait, Denies muscle cramps and Denies radiating pain into limb Skin/Breast Denies skin ulcer and Denies wounds Neuro Reports Normal hearing present and Denies abnormal gait Psych Reports no additional complaints Physical Exam Const General: cooperative, healthy appearing and comfortable Orientation/consciousness: oriented to person, oriented to place and oriented to time HEENT Head: Yes normal to inspection Neck Neck: Yes normal visual inspection Carotids: no bruits Chest Chest palpation & inspection: normal inspection of the chest Resp Effort & Inspection: normal respiratory effort and able to speak in complete sentences Auscultation: clear to auscultation bilaterally, no crackles, no rales, no rhonchi and no wheezes Cardio Rate: regular rate Rhythm: regular rhythm Heart sounds: S1 normal heart sound present and S2 normal heart sound present Bruits: no carotid bruits Peripheral pulses: Peripheral pulses 2+ throughout GI Inspection: Yes normal to inspection Skin Wounds: no wounds Hair: normal Neuro General: oriented to person, oriented to place and oriented to time Cranial nerves: Yes CN's II-XII intact bilaterally and Yes Normal hearing present Cognition (Neuro): normal cognition Motor exam (neuro): 5/5 motor strength present throughout Extrem Other: venous exam: No significant superficial varicosities or spider telangiectasias, minimal edema General: No clubbing, No cyanosis and No edema Psych Appearance: grossly normal Mental Status: mental status grossly normal Speech and movement: Normal speech and movement present Assessment & Plan Assessment & Plan (1) Varicose veins of right lower extremity with inflammation: Comment: 07/21/2023 - right great saphenous vein Cyanoacralate ablation Code(s): I83.11 - Varicose veins of right lower extremity with inflammation Plan: The patient has done extremely well with all venous treatments. Patient's may often experience postprocedure phlebitic episodes and I have discussed with the patient use of warm compresses and NSAIDS if tolerated for pain discomfort. In addition, I have discussed continued conservative measures including use of compression, leg elevation, and exercise. The patient was also given an information sheet regarding appropriate use of compression stockings and future purchases. Thank you for allowing us to care for your patient with venous disease. Coding Level of Care Code Global (68216) Diagnoses Varicose veins of right lower extremity with inflammation I83.11
== END 2023-08-03 13:17 | disposition home or self-care (01) ==
PROVIDERS: PCP Internal Medicine; Visit Provider Surgery Vascular Surgery
DX: I83.11 Varicose veins of right lower extremity with inflammation (principal); Z09 Encounter for follow-up examination after completed treatment for conditions other than malignant neoplasm
CPT/HCPCS: 99213

== ENCOUNTER → 2023-08-03 12:27 | Outpatient (BNVA) | payer OTHER, SELFPAY | PROVIDERS: PCP Internal Medicine; Visit Provider Surgery Vascular Surgery ==

== ENCOUNTER 2023-08-10 09:50 | Outpatient (AMB) | payer OTHER, SELFPAY ==
[2023-08-10 10:02] VITALS: BP 118/76; PULSE 101; O2SAT 98; BMI 24.0
--- NOTE | 2023-08-10 10:02 | MHC.PC.OV ---
Vital Signs 08/10/23 10:02 Height 5 ft 1 in Weight 127 lb 0.6 oz BMI 24.0 BP 118/76 Blood Pressure Location Lt brachial Position Sitting Pulse 101 H Pulse Source Pulse Oximeter Pulse Oximetry (%) 98 Oxygen Delivery Method Room Air Intake Visit Reasons: right sided neck and shoulder pain Intake Note: pt states senior living right shoulder pain and right leg pain due to over work Health And Wellness Coordinator Required: No Allergies No Known Allergies [No Known Allergies*] Allergy (Verified 08/10/23 10:09) Tobacco use date assessed: 08/10/23 Fall risk assessment: No Falls in past year Last assessed Fall Risk: 08/10/23 HPI HPI Comments History of Present Illness Details 67-year-old female H significant for hypercholesterolemia, htn, IFG and varicose veins.Patient presents today for right sided neck and shoulder pain x 1 week. Patient called office to notify PCP of this last week and cyclobenzaprine was prescribed. Patient reports that she took cyclobenzaprine which has resolved her shoulder pain. Patient denies shoulder pain at this time. However patient does report that she does have right-sided buttock pain, denies back pain. Denies any numbness or tingling down right leg or bowel or bladder incontinence. 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 So this exacerbated her shoulder pain as well as pain and right buttock. Patient requesting a note for work to excuse her from cleaning the trash bins as this exacerbates her pain so much that usually she can not return to work the next day due to it. Work note given to excuse from cleaning trash bins. Patient able to perform all other job functions [facility] Medical History Hyperkalemia Impaired fasting glucose Benign essential hypertension Pure hypercholesterolemia Surgical History History of colonoscopy Family History Father No problems noted. Mother Dementia Family/Other Diabetes Hypertension Social History Housing: Condominium Alcohol intake: never Patient Tobacco Use Status: Never used Tobacco e-Cigarette/Vaping Use: Never Used Second Hand Smoke Exposure: Yes service: No Current occupational status: employed Cognitive needs: No Hearing needs: No Vision needs: No Questionnaire Thrive Questionnaire Date Thrive assessed: 02/22/23 AUDIT C Alcohol Use Questionnaire (AUDIT-C) 1. How often do you have a drink containing alcohol?: Never 3. How often do you have six or more drinks on one occasion?: Never Total Score: 0 Score Reviewed/Action Taken: Yes SOLIS-7 AMB Questionnaire SOLIS-7 Date SOLIS - 7 assessed: 02/22/23 Source: Developed by Drs. Haim Reyes, Sarah Burton, [place] and colleagues, with an educational shayne from [employer]. Review of Systems Const Denies chills, Denies fatigue, Denies fever(s) and Denies poor appetite Eyes Denies no additional complaints ENT Reports Normal hearing present Card Denies chest pain, Denies syncope, Denies rapid heart rate and Denies dyspnea Resp Denies cough and Denies dyspnea GI Denies change in stool character, Denies constipation, Denies diarrhea, Denies nausea and Denies vomiting Denies urinary frequency, Denies dysuria and Denies urinary urgency Musc Reports arthralgias (right shoulder pain ) and Reports other (right buttock pain ) Neuro Reports Normal hearing present, Denies confusion and Denies syncope Psych Denies confusion Endo Denies fatigue Physical exam (Primary Care) Vital Signs: Last Vital Signs Pulse 101 H 08/10/23 10:02 BP 118/76 08/10/23 10:02 Pulse Ox 98 08/10/23 10:02 Oxygen Delivery Method Room Air 08/10/23 10:02 BMI result Body Mass Index 24.0 Tobacco/Smoking Status: Tobacco use Status Tobacco use date assessed 08/10/23 08/10/23 10:02 Patient Tobacco Use Status Never used Tobacco 08/10/23 10:02 e-Cigarette/Vaping Use Never Used 08/10/23 10:02 Thrive Assessment: Date of Thrive Assessment Date Thrive assessed 02/22/23 08/10/23 10:02 Const General: No confusion Orientation/consciousness: No confusion HENMT Head: Yes normocephalic and Yes atraumatic Eyes Conjunctivae: conjunctivae normal Chest Chest palpation & inspection: normal inspection of the chest Resp Effort & Inspection: normal respiratory effort Auscultation: clear to auscultation bilaterally, no crackles, no rhonchi and no wheezes Cardio Rate: regular rate Rhythm: regular rhythm Heart sounds: S1 normal heart sound present and S2 normal heart sound present GI Inspection: Yes normal to inspection Back/Spine/Pelvis Thoracic/Lumbar Spine: thoracic and lumbar spine normal to inspection, No thoracic spinal tenderness and No lumbar spinal tenderness Pelvis: no pain with anterior-posterior compression, no buttock swelling and sciatic notch tenderness on the right Neuro General: No confusion Cranial nerves: Yes Normal hearing present Extrem General: No edema Right upper extremity: normal to inspection, full ROM and shoulder/upper arm Details: normal to inspection and normal ROM; no tenderness, no swelling and no crepitus Left upper extremity: normal to inspection and full ROM Assessment and Plan Assessment & Plan (1) Right sided sciatica: Code(s): M54.31 - Sciatica, right side Plan: Ibuprofen sent to patient's pharmacy. Patient advised to take medication with food to prevent GI upset. Offer patient referral to physical therapy, however she would like to hold off on this time. (2) Right shoulder pain: Code(s): M25.511 - Pain in right shoulder Plan: Patient reports rib leaf of right shoulder pain from taking previously prescribed cyclobenzaprine. Patient can continue to take ibuprofen as needed for pain and cyclobenzaprine as needed. Do not take muscle relaxer at work or while driving as it can cause drowsiness. 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 Patient agreeable to plan of care Plan Keep scheduled follow-up with PCP or follow-up sooner if needed Medications: New ibuprofen 600 mg PO Q8H PRN 20 tabs 0RF pain M54.31 - Sciatica, right side Coding Level of Care Code Est Pt Level 3 (69872) Diagnoses Right sided sciatica M54.31 Right shoulder pain M25.511
== END 2023-08-10 11:14 | disposition home or self-care (01) ==
PROVIDERS: PCP Internal Medicine; Visit Provider Nurse Practitioner Family
DX: M54.31 Sciatica, right side (principal); M25.511 Pain in right shoulder
CPT/HCPCS: 99213

== ENCOUNTER 2023-12-29 15:17 | Outpatient (REF) | payer OTHER, SELFPAY ==
--- NOTE | ~2023-12-29 | MM_ITS ---
EXAMINATION: MM SCREENING DIGITAL BREAST TOMOSYNTHESIS, BILATERAL CLINICAL INFORMATION: Screening. Asymptomatic. COMPARISON: Mammography: This study is compared with prior exams dating back to 2018. TECHNIQUE: Digital breast tomosynthesis is performed in both the craniocaudal and mediolateral oblique views along with computer-aided detection (CAD). Synthesized 2D images are generated from the tomosynthesis. FINDINGS: The breasts are heterogeneously dense, which may obscure small masses (ACR BI-RADS breast composition Category c). There are no significant masses, abnormal calcifications, or other abnormalities. There are tissue markers in each breast from prior benign percutaneous biopsies. MM/MM tomosynthesis screening BI IMPRESSION: No mammographic evidence of malignancy. ASSESSMENT: BI-RADS BI-RADS 2 - Benign Findings RECOMMENDATION: Routine annual mammography screening. 1 year F/U This examination should not preclude the clinical evaluation of a suspicious palpable abnormality. This patient's information was entered into a reminder system with a target due date for their next mammogram.
== END 2023-12-29 15:18 | disposition home or self-care (01) ==
LOC: HO.MAMMO 15:17
PROVIDERS: PCP Internal Medicine; Visit Provider Internal Medicine
DX: Z12.31 Encounter for screening mammogram for malignant neoplasm of breast (principal)
CPT/HCPCS: 77063; 77067

== ENCOUNTER → 2023-12-29 15:30 | Outpatient (BNV) | payer OTHER, SELFPAY | PROVIDERS: PCP Internal Medicine; Visit Provider Radiology Diagnostic Radiology | DX: Z12.31 Encounter for screening mammogram for malignant neoplasm of breast (principal) | CPT/HCPCS: 77063; 77067 ==

== ENCOUNTER 2024-02-26 06:03 | Outpatient (REF) | payer OTHER, SELFPAY ==
[2024-02-26 08:09] LABS: Estimated Average Glucose 131 mg/dL; Hemoglobin A1c % 6.2 % (<6.0)
[2024-02-26 08:32] LABS: Anion Gap 11 (12-20); Blood Urea Nitrogen 11 mg/dL (9-16); Calcium 9.7 mg/dL (8.4-10.2); Carbon Dioxide 29 mmol/L (22-29); Chloride 104 mmol/L (96-108); Cholesterol 175 mg/dL (<200); Estimated Glomerular Filt Rate > 60; Glucose Fasting 119 mg/dL (60-99); HDL Cholesterol 57 mg/dL (>40); LDL Cholesterol Calculated 98 mg/dL (<100); Potassium 4.5 mmol/L (3.3-5.1); Sodium 139 mmol/L (135-145); Triglycerides 101 mg/dL (<150)
== END 2024-02-26 06:04 | disposition home or self-care (01) ==
LOC: HO.LAB 06:03
PROVIDERS: PCP Internal Medicine; Visit Provider Internal Medicine
DX: E78.00 Pure hypercholesterolemia, unspecified (principal); R73.01 Impaired fasting glucose; I10 Essential (primary) hypertension
CPT/HCPCS: 36415; 80048; 80061; 83036

== ENCOUNTER 2024-02-28 15:39 | Outpatient (AMB) | payer OTHER, SELFPAY ==
--- NOTE | 2024-02-28 15:41 | MHC.PC.OV ---
Vital Signs 02/28/24 15:42 Height 5 ft 1 in Weight 128 lb 0.6 oz BMI 24.2 BP 114/72 Blood Pressure Location Lt brachial Position Sitting Pulse 96 Pulse Source Pulse Oximeter Pulse Oximetry (%) 97 Oxygen Delivery Method Room Air Intake Visit Reasons: pe Intake Note: Patient is here today for a physical. Allergies No Known Allergies [No Known Allergies*] Allergy (Verified 02/28/24 16:10) Medication List - Last Reconciled 02/28/24 by Adelfo Byers MD atorvastatin 10 mg PO DAILY 90 days losartan 50 mg PO DAILY 90 days multivitamin 1 tab PO DAILY Tobacco use date assessed: 02/28/24 Fall risk assessment: No Falls in past year Last assessed Fall Risk: 02/28/24 Dental Screening Dental Screen Date: 02/28/24 Did you have a dental visit in the last 12 months?: Yes Did you have a dental problem in the last 6 months where you did not have access to dental care?: No Was dental information given to patient?: Patient has dentist HPI pe HPI Details Patient comes in today for her annual physical examination States that she feels okay She denies any headaches or dizziness Denies any chest pains, no SOB No nausea/vomiting, no abdominal pain No change in bowel habits noted She denies any acute urinary symptoms She had her follow up labs done a few days ago - to discuss her results She last had her annual mammogram done a couple of months ago in December 2023 Her repeat colonoscopy will be due in 2028 States that her last gynecology exam and pap smear was done a couple of years ago - states that she has never had any abnormal pap smear in the past and was advised that at her age, she has the option of no longer going for her annual pap smear if she chooses to do so [facility] Medical History Hyperkalemia Impaired fasting glucose Benign essential hypertension Pure hypercholesterolemia Surgical History History of colonoscopy Family History Father No problems noted. Mother Dementia Family/Other Diabetes Hypertension Social History Housing: Condominium Alcohol intake: never Patient Tobacco Use Status: Never used Tobacco e-Cigarette/Vaping Use: Never Used Second Hand Smoke Exposure: Yes service: No Current occupational status: employed Cognitive needs: No Hearing needs: No Vision needs: No Questionnaire PHQ-9 Over the last 2 weeks, how often have you been bothered by any of the following problems? 1. Little interest or pleasure in doing things: not at all 2. Feeling down, depressed, or hopeless: not at all 3. Trouble falling or staying asleep, or sleeping too much: not at all 4. Feeling tired or having little energy: not at all 5. Poor appetite or overeating: not at all 6. Feeling bad about yourself - or that you are a failure or have let yourself or your family down: not at all 7. Trouble concentrating on things, such as reading the newspaper or watching television: not at all 8. Moving or speaking so slowly that other people could have noticed. Or the opposite - being so fidgety or restless that you have been moving around a lot more than usual: not at all 9. Thoughts that you would be better off or of hurting yourself in some way: not at all Total score: 0 Depression Screening Interpretation: Negative Depression Screening Done: Yes 64714 - PHQ-9 Billing: Yes Source: Developed by Drs. Haim Reyes, Sarah Burton, [place] and colleagues, with an educational shayne from [employer]. Thrive Questionnaire Date Thrive assessed: 02/28/24 I am a: Patient What is your living situation today?: I have a steady place to live Within the past 12 months, did the food you bought not last and you didn't have the money to get more?: Never true Within the past 12 months, did you worry whether your food would run out before you got money to buy more?: Never true Do you have trouble paying for medicines?: No Do you have trouble getting transportation to medical appointments?: No Do you have trouble paying your heating and electricity bill?: No Do you have trouble taking care of your child, family member or friend?: No Do you have trouble with day-to-day activities such as bathing, preparing meals, shopping, managing finances, etc.?: No Are you currently unemployed and looking for a job?: No Are you interested in more education?: No Please select the resources that you would like help with: None Currently or been in a relationship where the following occur: no concerns reported THRIVE Score: 0 AUDIT C Alcohol Use Questionnaire (AUDIT-C) 1. How often do you have a drink containing alcohol?: Never 3. How often do you have six or more drinks on one occasion?: Never Total Score: 0 Score Reviewed/Action Taken: Yes SOLIS-7 AMB Questionnaire SOLIS-7 Date SOLIS - 7 assessed: 02/28/24 Feeling nervous, anxious, or on edge: 0 = Not at all Not being able to stop or control worryin = Not at all Worrying too much about different things: 0 = Not at all Trouble relaxin = Not at all Being so restless that it is hard to sit still: 0 = Not at all Becoming easily annoyed or irritable: 0 = Not at all Feeling afraid as if something awful might happen: 0 = Not at all Total SOLIS-7 score (0-4 normal; 5-9 mild; 10-14 moderate; 15-21 severe): 0 Source: Developed by Drs. Haim Reyes, Sarah Burton, [place] and colleagues, with an educational shayne from [employer]. SOLIS-7 Assessment Billing SOLIS-7 Assessment Tool: SOLIS-7 Assessment 36928 Review of Systems Const Denies chills, Denies fatigue, Denies fever(s), Denies headache(s) and Denies malaise Eyes Denies blurry vision, Denies change in vision, Denies irritation and Denies itchy eyes ENT Denies dysphagia, Denies dizziness, Denies otalgia, Denies headache(s), Denies nasal congestion, Denies neck pain, Denies odynophagia, Denies sinus pain and Denies sore throat Card Denies chest pain, Denies rapid heart rate, Denies irregular heart rhythm, Denies palpitations and Denies dyspnea Resp Denies chest congestion, Denies cough, Denies dyspnea and Denies wheezing GI Denies abdominal pain, Denies bloating, Denies constipation, Denies dysphagia, Denies heartburn, Denies diarrhea, Denies nausea, Denies odynophagia and Denies vomiting Denies hematuria, Denies urinary frequency, Denies dysuria, Denies urinary incontinence and Denies urinary urgency Musc Denies back pain, Denies arthralgias, Denies joint swelling, Denies muscle weakness and Denies neck pain Skin/Breast Denies breast pain, Denies breast mass, Denies change in pigmentation, Denies lesions, Denies rash and Denies unusual bruising Neuro Denies dizziness, Denies headache(s) and Denies paresthesias Psych Denies anxiety and Denies depression Endo Denies fatigue and Denies palpitations Thomas/Lymph Denies easy bruising Aller/Immun Denies itchy eyes and Denies wheezing Physical exam (Primary Care) Vital Signs: Last Vital Signs Pulse 96 02/28/24 15:42 BP 114/72 02/28/24 15:42 Pulse Ox 97 02/28/24 15:42 Oxygen Delivery Method Room Air 02/28/24 15:42 BMI result Body Mass Index 24.2 Tobacco/Smoking Status: Tobacco use Status Tobacco use date assessed 02/28/24 02/28/24 16:01 Patient Tobacco Use Status Never used Tobacco 02/28/24 15:42 e-Cigarette/Vaping Use Never Used 02/28/24 15:42 PHQ-9: PHQ-9 Score PHQ-9: Total score 0 02/28/24 16:12 Depression Screening Interpretation: Negative Thrive Assessment: Date of Thrive Assessment Date Thrive assessed 02/28/24 02/28/24 15:42 Currently or been in a relationship where the following occur: no concerns reported Const General: no acute distress, alert and awake Orientation/consciousness: patient oriented x3 HENMT Head: Yes normocephalic and Yes atraumatic Ears: external ears normal, TM's normal bilaterally and EAC's normal General nose exam: No nasal discharge present Face and sinus: Yes normal facial exam and Yes sinuses nontender Teeth and gingiva: dentition normal Throat: Yes posterior oropharynx normal and Yes tonsils normal (no TP congestion) Eyes Eyelids: Yes eyelids normal Conjunctivae: conjunctivae normal Pupils: Equal, round and reactive pupils present EOM: EOMs intact bilaterally Neck Neck: Yes no lymphadenopathy and Yes supple Thyroid: Thyroid normal Resp Auscultation: clear to auscultation bilaterally, no rales and no wheezes Cardio Rate: regular rate Rhythm: regular rhythm Heart sounds: no murmurs GI Palpation (GI): Soft to palpation, nontender and No hepatosplenomegaly present Auscultation: normal bowel sounds General: Yes no CVA tenderness Back/Spine/Pelvis Back: no CVA tenderness Thoracic/Lumbar Spine: thoracic and lumbar spine normal to inspection Skin Lesions: no lesions Rashes: no rashes Neuro General: patient oriented x3, moves all extremities, no focal motor deficits and CN's II-XI intact bilaterally Cranial nerves: Yes Equal, round and reactive pupils present Cognition (Neuro): normal cognition Gait exam (Neuro): Normal gait present Extrem General: Yes no clubbing, cyanosis or edema Results Reviewed Results Reviewed: Laboratory Tests 02/26/24 06:19 Sodium 139 Potassium 4.5 Creatinine 0.73 Estimated GFR > 60 Fasting Glucose 119 H Hemoglobin A1c % 6.2 H Calcium 9.7 Triglycerides 101 Cholesterol 175 LDL Cholesterol, Calc 98 HDL Cholesterol 57 Assessment and Plan Assessment & Plan (1) Annual physical exam: Code(s): Z00.00 - Encounter for general adult medical examination without abnormal findings Plan: Results of her labs done a few days ago reviewed and discussed with patient She is up-to-date with her annual mammogram; reportedly no longer has to keep up 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 Had screening colonoscopy (normal) done in 2019 - is due for repeat in 10 years (2028) (2) Benign essential hypertension: Code(s): I10 - Essential (primary) hypertension Plan: Reinforced low sodium diet - goal is systolic BP of 120 mm or less Continue Losartan 100 mg 1/2 tablet QD Patient has requested to keep her appointments to a minimum and would like to just come back in a year for her next annual PE as she would like to save on her expenses and co-pays; states that she will call for appt if she has any problems (3) Pure hypercholesterolemia: Code(s): E78.00 - Pure hypercholesterolemia, unspecified Plan: She is advised that her cholesterol numbers have improved slightly from previous on her recent labs Reinforced low cholesterol diet Continue Atorvastatin 10 mg QD Will recheck labs and fasting lipids again in 1 year for follow up (4) Impaired fasting glucose: Code(s): R73.01 - Impaired fasting glucose Plan: Her HgbA1c was at 6.2% on her recent labs; was previously at 6.1% Patient still prefers NOT to take any Rx for her blood sugar Reinforced low calorie diet/exercise as tolerated (5) Hyperkalemia: Code(s): E87.5 - Hyperkalemia Plan: Corrected and remains normal on her recent labs; will continue to monitor regularly (6) Pain of left heel: Code(s): M79.672 - Pain in left foot Plan: Her left heel/foot x-rays done last year revealed (+) calcaneal spurs She was referred to podiatry last year but she states that no one called her back for her appt - states that her foot symptoms have since subsided and she would like to hold off on seeing podiatry at this time (7) Varicose veins of bilateral lower extremities with pain: Code(s): I83.813 - Varicose veins of bilateral lower extremities with pain Plan: S/P GSV venaseal back in June 2024 with (+) symptomatic relief Follow up with vascular surgery as scheduled (8) Hyperpigmented skin lesion: Code(s): L81.9 - Disorder of pigmentation, unspecified Plan: She was referred to [facility] for this last year but states that she was never scheduled for an appointment and was never seen She has requested to just have us prescribe her some Rx like Retin-A for her skin issue - have advised her that I would prefer she see dermatology for this as I do not have any experience with Retin-A or tretinoid Rxs Will refer her this time to Dr. Liu for dermatology evaluation and management Plan To return in 1 year for her next annual physical examination (per request - as she prefers to keep her appts to a minimum to help save on expenses and co-pays) Orders: Orders Comprehensive [place]. Panel Fast 1 Year E78.00 - Pure hypercholesterolemia, unspecified TSH reflex Free T4 1 Year E78.00 - Pure hypercholesterolemia, unspecified UA CC w/rflx Micro + Cult 1 Year R30.0 - Dysuria Hemoglobin A1c 1 Year R73.01 - Impaired fasting glucose Complete Blood Count Auto Diff 1 Year D64.9 - Anemia, unspecified Lipid Panel 1 Year E78.00 - Pure hypercholesterolemia, unspecified Vitamin D 25-OH Total 1 Year E55.9 - Vitamin D deficiency, unspecified Referrals Dermatology Referral L81.9 - Disorder of pigmentation, unspecified Coding Level of Care Code Est Pt Prev Care >65y(40954) Diagnoses Annual physical exam Z00.00 Benign essential hypertension I10 Pure hypercholesterolemia E78.00 Impaired fasting glucose R73.01 Hyperkalemia E87.5 Pain of left heel M79.672 Varicose veins of bilateral lower extremities with pain I83.813 Hyperpigmented skin lesion L81.9 Additional Codes SOLIS-7 Assessment Billing - SOLIS-7 Assessment Tool: SOLIS-7 Assessment 26409 ([id number])
[2024-02-28 15:42] VITALS: BP 114/72; PULSE 96; O2SAT 97; BMI 24.2
== END 2024-02-28 16:20 | disposition home or self-care (01) ==
PROVIDERS: PCP Internal Medicine; Visit Provider Internal Medicine
DX: Z00.00 Encounter for general adult medical examination without abnormal findings (principal); I10 Essential (primary) hypertension; E78.00 Pure hypercholesterolemia, unspecified; R73.01 Impaired fasting glucose; E87.5 Hyperkalemia; M79.672 Pain in left foot; I83.813 Varicose veins of bilateral lower extremities with pain; L81.9 Disorder of pigmentation, unspecified
CPT/HCPCS: 99397

== ENCOUNTER 2025-02-05 14:41 | Outpatient (REF) | payer OTHER, SELFPAY | END 2025-02-05 14:42 | disposition home or self-care (01) | LOC: HO.MAMMO 14:41 | PROVIDERS: PCP Internal Medicine; Visit Provider Internal Medicine | DX: Z12.31 Encounter for screening mammogram for malignant neoplasm of breast (principal) | CPT/HCPCS: 77063; 77067 ==

== ENCOUNTER → 2025-02-05 15:15 | Outpatient (BNV) | payer OTHER, SELFPAY | PROVIDERS: PCP Internal Medicine; Visit Provider Internal Medicine | DX: Z12.31 Encounter for screening mammogram for malignant neoplasm of breast (principal) | CPT/HCPCS: 77063; 77067 ==

== ENCOUNTER 2025-03-18 05:56 | Outpatient (REF) | payer OTHER, SELFPAY ==
[2025-03-18 06:10] LABS: MANUAL DIFF FLAG NO
[2025-03-18 07:22] LABS: Basophils Absolute Auto 0.1 X10*3/uL (0.0-0.2); Basophils Percent Auto 0.8 % (0-2); Eosinophils Absolute Auto 0.1 X10*3/uL (0.0-0.4); Eosinophils Percent Auto 1.1 % (0-4); Hematocrit 41.4 % (37.0-47.0); Hemoglobin 13.7 g/dl (12.0-16.0); Imm Gran Abs Auto 0.01 X10*3/uL (0.00-0.03); Imm Gran Pct Auto 0.2 % (0.0-0.4); Lymphocytes Absolute Auto 1.7 X10*3/uL (1.2-4.9); Lymphocytes Percent Auto 28.2 % (20-40); Mean Corpuscular HGB Conc 33.1 g/dl (31.0-35.0); Mean Corpuscular Hemoglobin 28.8 pg (27.0-33.0); Mean Corpuscular Volume 87.2 fL (80.0-98.0); Mean Platelet Volume 10.4 fL (9.4-12.3); Monocytes Absolute Auto 0.4 X10*3/uL (0.1-1.2); Monocytes Percent Auto 6.9 % (2-11); Neutrophils Absolute Auto 3.8 x10*3/uL (2.0-8.3); Neutrophils Percent Auto 62.8 % (45-73); Platelet Count 222 X10*3/uL (160-400); Red Blood Count 4.75 X10*6/uL (4.20-5.50); Red Cell Distribution Width 12.1 % (11.0-16.0); White Blood Count 6.1 X10*3/uL (4.8-10.8)
[2025-03-18 07:31] LABS: Estimated Average Glucose 134 mg/dL; Hemoglobin A1c % 6.3 % (<6.0)
[2025-03-18 07:33] LABS: Appearance Urine Clear; Color Urine Yellow; Glucose Urine UA Negative (Negative); Leukocyte Esterase Urine Trace (Negative); Nitrite Urine Negative (Negative); PH 6.5 (5.0-9.0); UMIC TRIGGER UACC YES; Urine Blood Negative (Negative); Urine Ketones Negative (Negative); Urine Protein Negative (Neg-Trace)
[2025-03-18 07:40] LABS: Bacteria Urine None Seen (None Seen); Hyaline Casts Urine 0-2 /LPF (0-2); RBC Urine 0-2 /HPF (0-2); Squamous Epithelial Cell Urine 0-2 /HPF (0-2); WBC Urine 0-5 /HPF (0-5)
[2025-03-18 07:51] LABS: Alanine Aminotransferase 25 U/L (0-31); Albumin Level 4.1 g/dL (3.5-5.0); Alkaline Phosphatase 93 U/L (39-117); Anion Gap 12 (12-20); Aspartate Amino Transferase 26 U/L (5-31); Bilirubin Total 0.5 mg/dL (0.0-1.0); Blood Urea Nitrogen 14 mg/dL (9-16); Calcium 9.6 mg/dL (8.4-10.2); Carbon Dioxide 28 mmol/L (22-29); Chloride 105 mmol/L (96-108); Cholesterol 172 mg/dL (<200); Estimated Glomerular Filt Rate > 60; Glucose Fasting 124 mg/dL (60-99); HDL Cholesterol 56 mg/dL (>40); LDL Cholesterol Calculated 98 mg/dL (<100); Potassium 4.9 mmol/L (3.3-5.1); Sodium 140 mmol/L (135-145); Triglycerides 94 mg/dL (<150)
[2025-03-18 08:11] LABS: TSH reflex Free T4 1.78 uIU/mL (0.32-4.0); Vitamin D 25-OH Total 42.3 ng/mL (>30)
== END 2025-03-18 05:57 | disposition home or self-care (01) ==
LOC: HO.LAB 05:56
PROVIDERS: PCP Internal Medicine; Visit Provider Internal Medicine
DX: E78.00 Pure hypercholesterolemia, unspecified (principal); R73.01 Impaired fasting glucose; D64.9 Anemia, unspecified; E55.9 Vitamin D deficiency, unspecified; R30.0 Dysuria
CPT/HCPCS: 36415; 80053; 80061; 81001; 82306; 83036; 84443; 85025

== ENCOUNTER 2025-03-26 15:43 | Outpatient (AMB) | payer OTHER, SELFPAY ==
[2025-03-26 15:45] VITALS: BP 126/82; PULSE 86; O2SAT 98; BMI 23.3
--- NOTE | 2025-03-26 15:45 | MHC.PC.OV ---
Vital Signs 03/26/25 15:45 Height 5 ft 1 in Weight 123 lb 2 oz BMI 23.3 BP 126/82 Blood Pressure Location Lt brachial Position Sitting Pulse 86 Pulse Source Pulse Oximeter Pulse Oximetry (%) 98 Oxygen Delivery Method Room Air Intake Visit Reasons: Annual PE Database Architect Required: No Accompanied by: Self / Same As Patient Allergies No Known Allergies (No Known Allergies*) Allergy (Verified 03/26/25 16:35) Medication List - Last Reconciled 03/26/25 by Adelfo Byers MD atorvastatin 10 mg PO DAILY 90 days losartan 75 mg PO DAILY multivitamin 1 tab PO DAILY Tobacco use date assessed: 03/26/25 Fall risk assessment: No Falls in past year Last assessed Fall Risk: 03/26/25 Dental Screening Dental Screen Date: 03/26/25 Did you have a dental visit in the last 12 months?: Yes Did you have a dental problem in the last 6 months where you did not have access to dental care?: No Was dental information given to patient?: Patient has dentist HPI Annual PE HPI Details Patient comes in today for her annual physical examination States that she feels okay She denies any headaches or dizziness Denies any chest pains, no SOB No nausea/vomiting, no abdominal pain No change in bowel habits noted She denies any acute urinary symptoms Patient adds that she started taking 75 mg of her Losartan daily a few months ago and that she self-increased her dose from 50 mg she has noticed her blood pressure staying high consistently Claims that she tried calling the office for further instructions a few times but never received any call back and she increased her dose on her own when her blood pressure stayed high consistently Recalls that she was also experiencing on and off headaches and occasional dizziness at the time Reports the since she increased her dose on her own, she feels much better and her blood pressure has come down significantly over the past couple of months She had her follow up labs done a few days ago - to discuss her results She last had her annual mammogram done a couple of months ago in January 2025 Her repeat colonoscopy will be due in 2028 States that her last gynecology exam and pap smear was done about 3 years ago - states that she has never had any abnormal pap smear in the past and was advised that at her age, she has the option of no longer going for her annual pap smear if she chooses to do so [facility] Medical History Hyperkalemia Impaired fasting glucose Benign essential hypertension Pure hypercholesterolemia Surgical History (Updated 03/26/25 @ 16:35 by Adelfo Byers MD) History of colonoscopy Family History Father No problems noted. Mother Dementia Family/Other Diabetes Hypertension Social History Housing: Condominium Alcohol intake: never Patient Tobacco Use Status: Never used Tobacco e-Cigarette/Vaping Use: Never Used Second Hand Smoke Exposure: Yes service: No Current occupational status: employed Current occupational exposures/hazards: No Cognitive needs: No Hearing needs: No Vision needs: No Questionnaire PHQ-9 Over the last 2 weeks, how often have you been bothered by any of the following problems? 1. Little interest or pleasure in doing things: not at all 2. Feeling down, depressed, or hopeless: not at all 3. Trouble falling or staying asleep, or sleeping too much: not at all 4. Feeling tired or having little energy: not at all 5. Poor appetite or overeating: not at all 6. Feeling bad about yourself - or that you are a failure or have let yourself or your family down: not at all 7. Trouble concentrating on things, such as reading the newspaper or watching television: not at all 8. Moving or speaking so slowly that other people could have noticed. Or the opposite - being so fidgety or restless that you have been moving around a lot more than usual: not at all 9. Thoughts that you would be better off or of hurting yourself in some way: not at all Total score: 0 Depression Screening Interpretation: Negative Depression Screening Done: Yes 64562 - PHQ-9 Billing: Yes Source: Developed by Drs. Haim Reyes, Sarah Burton, [place] and colleagues, with an educational shayne from [employer]. Thrive Questionnaire Date Thrive assessed: 03/26/25 I am a: Patient What is your living situation today?: I have a steady place to live Within the past 12 months, did the food you bought not last and you didn't have the money to get more?: I choose not to answer this question Within the past 12 months, did you worry whether your food would run out before you got money to buy more?: I choose not to answer this question Do you have trouble paying for medicines?: No Do you have trouble getting transportation to medical appointments?: No Do you have trouble paying your heating and electricity bill?: No Do you have trouble taking care of your child, family member or friend?: No Do you have trouble with day-to-day activities such as bathing, preparing meals, shopping, managing finances, etc.?: No Are you currently unemployed and looking for a job?: No Are you interested in more education?: No Please select the resources that you would like help with: None Currently or been in a relationship where the following occur: I choose not to answer THRIVE Score: 0 AUDIT C Alcohol Use Questionnaire (AUDIT-C) 1. How often do you have a drink containing alcohol?: Never 3. How often do you have six or more drinks on one occasion?: Never Total Score: 0 Score Reviewed/Action Taken: Yes SOLIS-7 AMB Questionnaire SOLIS-7 Date SOLSI - 7 assessed: 03/26/25 Feeling nervous, anxious, or on edge: 0 = Not at all Not being able to stop or control worryin = Not at all Worrying too much about different things: 0 = Not at all Trouble relaxin = Not at all Being so restless that it is hard to sit still: 0 = Not at all Becoming easily annoyed or irritable: 0 = Not at all Feeling afraid as if something awful might happen: 0 = Not at all Total SOLIS-7 score (0-4 normal; 5-9 mild; 10-14 moderate; 15-21 severe): 0 Source: Developed by Drs. Haim Reyes, Sarah Burton, [place] and colleagues, with an educational shayne from [employer]. Review of Systems Const Denies chills, Denies fatigue, Denies fever(s), Denies headache(s) and Denies malaise Eyes Denies blurry vision, Denies change in vision, Denies irritation and Denies itchy eyes ENT Denies dysphagia, Denies dizziness, Denies otalgia, Denies headache(s), Denies nasal congestion, Denies neck pain, Denies odynophagia, Denies sinus pain and Denies sore throat Card Denies chest pain, Denies rapid heart rate, Denies irregular heart rhythm, Denies palpitations and Denies dyspnea Resp Denies chest congestion, Denies cough, Denies dyspnea and Denies wheezing GI Denies abdominal pain, Denies bloating, Denies constipation, Denies dysphagia, Denies heartburn, Denies diarrhea, Denies nausea, Denies odynophagia and Denies vomiting Denies hematuria, Denies urinary frequency, Denies dysuria, Denies urinary incontinence and Denies urinary urgency Musc Denies back pain, Denies arthralgias, Denies joint swelling, Denies muscle weakness and Denies neck pain Skin/Breast Denies breast pain, Denies breast mass, Denies change in pigmentation, Denies lesions, Denies rash and Denies unusual bruising Neuro Denies dizziness, Denies headache(s) and Denies paresthesias Psych Denies anxiety and Denies depression Endo Denies fatigue and Denies palpitations Thomas/Lymph Denies easy bruising Aller/Immun Denies itchy eyes and Denies wheezing Physical exam (Primary Care) Vital Signs: Last Vital Signs Pulse 86 03/26/25 15:45 BP 126/82 03/26/25 15:45 Pulse Ox 98 03/26/25 15:45 Oxygen Delivery Method Room Air 03/26/25 15:45 BMI result Body Mass Index 23.3 Tobacco/Smoking Status: Tobacco use Status Tobacco use date assessed 03/26/25 03/26/25 15:47 Patient Tobacco Use Status Never used Tobacco 03/26/25 15:47 e-Cigarette/Vaping Use Never Used 03/26/25 15:47 PHQ-9: PHQ-9 Score PHQ-9: Total score 0 03/30/25 06:52 Depression Screening Interpretation: Negative Thrive Assessment: Date of Thrive Assessment Date Thrive assessed 03/26/25 03/26/25 15:47 Currently or been in a relationship where the following occur: I choose not to answer Const General: no acute distress, alert and awake Orientation/consciousness: patient oriented x3 HENMT Head: Yes normocephalic and Yes atraumatic Ears: external ears normal, TM's normal bilaterally and EAC's normal General nose exam: No nasal discharge present Face and sinus: Yes normal facial exam and Yes sinuses nontender Teeth and gingiva: dentition normal Throat: Yes posterior oropharynx normal and Yes tonsils normal (no TP congestion) Eyes Eyelids: Yes eyelids normal Conjunctivae: conjunctivae normal Pupils: Equal, round and reactive pupils present EOM: EOMs intact bilaterally Neck Neck: Yes no lymphadenopathy and Yes supple Thyroid: Thyroid normal Resp Auscultation: clear to auscultation bilaterally, no rales and no wheezes Cardio Rate: regular rate Rhythm: regular rhythm Heart sounds: no murmurs GI Palpation (GI): Soft to palpation, nontender and No hepatosplenomegaly present Auscultation: normal bowel sounds General: Yes no CVA tenderness Back/Spine/Pelvis Back: no CVA tenderness Thoracic/Lumbar Spine: thoracic and lumbar spine normal to inspection Skin Lesions: no lesions Rashes: no rashes Neuro General: patient oriented x3, moves all extremities, no focal motor deficits and CN's II-XI intact bilaterally Cranial nerves: Yes Equal, round and reactive pupils present Cognition (Neuro): normal cognition Gait exam (Neuro): Normal gait present Extrem General: Yes no clubbing, cyanosis or edema Results Reviewed Results Reviewed: Laboratory Tests 03/18/25 03/18/25 06:06 06:09 WBC 6.1 Hgb 13.7 Hct 41.4 Plt Count 222 Sodium 140 Potassium 4.9 Creatinine 0.69 Estimated GFR > 60 Fasting Glucose 124 H Hemoglobin A1c % 6.3 H Calcium 9.6 AST 26 ALT 25 Triglycerides 94 Cholesterol 172 LDL Cholesterol, Calc 98 HDL Cholesterol 56 25-OH Vitamin D Total 42.3 TSH 1.78 Ur Specific [place] 1.010 Urine Protein Negative Urine Glucose (UA) Negative Urine Blood Negative Urine Nitrite Negative Ur Leukocyte Esterase Trace H Coding Level of Care Code Est Pt Prev Care >65y(82999) Diagnoses Annual physical exam Z00.00 Benign essential hypertension I10 Pure hypercholesterolemia E78.00 Impaired fasting glucose R73.01 Calcaneal spur, left foot M77.32 Varicose veins of bilateral lower extremities with pain I83.813 Additional Codes PHQ-9 - 28886 - PHQ-9 Billing: Yes ([id number]) Assessment & Plan Assessment & Plan (1) Annual physical exam: Code(s): Z00.00 - Encounter for general adult medical examination without abnormal findings Category: Medical Plan: Results of her labs done a few days ago reviewed and discussed with patient She last had her annual mammogram done a couple of months ago in January 2025 Her repeat colonoscopy will be due in 2028 States that her last gynecology exam and pap smear was done about 3 years ago - states that she has never had any abnormal pap smear in the past and was advised that at her age, she has the option of no longer going for her annual pap smear if she chooses to do so but patient now decides he wants to see Gynecology again and have least 1 more Pap smear and gynecology exam done - referral to [facility] placed Will also send patient for BMD for osteoporosis screening - this will be her index screen as she states that she has never had BMD done in the past (2) Benign essential hypertension: Code(s): I10 - Essential (primary) hypertension Category: Medical Plan: Reinforced low sodium diet - goal is systolic BP of 120 mm or less Continue Losartan 50 mg 1.5 tablets (75 mg) QD (3) Pure hypercholesterolemia: Code(s): E78.00 - Pure hypercholesterolemia, unspecified Category: Medical Plan: Her cholesterol levels remain adequately controlled on her current Rx Reinforced low cholesterol diet Continue Atorvastatin 10 mg QD Will recheck labs and fasting lipids again in 1 year for follow up (4) Impaired fasting glucose: Code(s): R73.01 - Impaired fasting glucose Category: Medical Plan: Her HgbA1c was at 6.3% on her recent labs; was previously at 6.2% Patient still prefers NOT to take any Rx for her blood sugar and would like to continue on diet modification alone Reinforced low calorie diet/exercise as tolerated (5) Calcaneal spur, left foot: Code(s): M77.32 - Calcaneal spur, left foot Category: Medical Plan: Left heel/foot x-rays done a couple of years ago revealed (+) calcaneal spurs She was previously referred to podiatry but she was never scheduled for an appt - states that her foot symptoms have since subsided and she would like to hold off on seeing podiatry at this time (6) Varicose veins of bilateral lower extremities with pain: Code(s): I83.813 - Varicose veins of bilateral lower extremities with pain Category: Medical Plan: S/P GSV venaseal back in June 2024 with (+) symptomatic relief Follow up with vascular surgery as scheduled Plan Patient again requests to keep her appointments to a minimum and would like to just come back in a year for her next annual PE as she would like to save on her expenses and co-pays; states that she will call for appt if she has any problems To return in 1 year for her next annual physical examination Orders: Orders XR DEXA axial skeleton 03/26/25 Z78.0 - Asymptomatic menopausal state Hemoglobin A1c 1 Year R73.01 - Impaired fasting glucose, Z00.00 - Encounter for general adult medical examination without abnormal findings Lipid Panel 1 Year E78.00 - Pure hypercholesterolemia, unspecified, Z00.00 - Encounter for general adult medical examination without abnormal findings Complete Blood Count Auto Diff 1 Year D64.9 - Anemia, unspecified, Z00.00 - Encounter for general adult medical examination without abnormal findings Comprehensive [place]. Panel Fast 1 Year E78.00 - Pure hypercholesterolemia, unspecified, Z00.00 - Encounter for general adult medical examination without abnormal findings TSH reflex Free T4 1 Year E78.00 - Pure hypercholesterolemia, unspecified, Z00.00 - Encounter for general adult medical examination without abnormal findings UA CC w/rflx Micro + Cult 1 Year R30.0 - Dysuria, Z00.00 - Encounter for general adult medical examination without abnormal findings Vitamin D 25-OH Total 1 Year E55.9 - Vitamin D deficiency, unspecified, Z00.00 - Encounter for general adult medical examination without abnormal findings Referrals [facility] Referral Z12.4 - Encounter for screening for malignant neoplasm of cervix Medications: Changed From losartan 75 mg PO DAILY To losartan 75 mg (1.5 x 50 mg) PO DAILY 135 tabs 3RF 90 days
== END 2025-03-26 16:49 | disposition home or self-care (01) ==
LOC: HO.HMCH 15:44
PROVIDERS: PCP Internal Medicine; Visit Provider Internal Medicine
DX: Z00.00 Encounter for general adult medical examination without abnormal findings (principal); I10 Essential (primary) hypertension; E78.00 Pure hypercholesterolemia, unspecified; R73.01 Impaired fasting glucose; M77.32 Calcaneal spur, left foot; I83.813 Varicose veins of bilateral lower extremities with pain

== ENCOUNTER → 2025-03-26 15:43 | Outpatient (BNVA) | payer OTHER, SELFPAY | PROVIDERS: PCP Internal Medicine; Visit Provider Internal Medicine | DX: Z00.00 Encounter for general adult medical examination without abnormal findings (principal); I10 Essential (primary) hypertension; E78.00 Pure hypercholesterolemia, unspecified; R73.01 Impaired fasting glucose; M77.32 Calcaneal spur, left foot; I83.813 Varicose veins of bilateral lower extremities with pain | CPT/HCPCS: 96127 ==

== ENCOUNTER 2025-05-01 10:03 | Outpatient (REF) | payer OTHER, SELFPAY ==
--- NOTE | ~2025-05-01 | MM_ITS ---
EXAMINATION: DXA BONE DENSITY AXIAL HISTORY: Z78.0 - Asymptomatic menopausal state TECHNIQUE: MLW Squared Dual energy absorptiometry (DEXA) of the lumbar spine, total left hip, and femoral neck was performed. COMPARISON: There are no prior studies for comparison. FINDINGS: The bone mineral density of the lumbar spine is 0.980 g/cm2, corresponding to a T-score of -1.7, and a Z-score of 0.2. This is indicative of osteopenia. The bone mineral density of the left total hip is 1.087 g/cm2, corresponding to a T-score of 0.6, and a Z-score of 2.1. This is indicative of normal bone mineral density. The bone mineral density of the left femoral neck is 0.935 g/cm2, corresponding to a T-score of -0.7, and a Z-score of 1.0. This is indicative of normal bone mineral density. FRACTURE RISK: The FRAX index suggests a risk of major osteoporotic fracture of 4.3%, and of hip fracture 0.3%. MM/XR DEXA axial skeleton IMPRESSION: Based on bone mineral density, and according to World Health Organization (WHO) criteria, the diagnosis is consistent with osteopenia. Statistically, 68% of repeat scans fall within 1 SD (+/- 0.010 g/cm2 for AP spine L1-L4) and 1 SD (+/- 0.012 g/cm2 for femur total) FRAX is a trademark of the [employer]'s [employer] Metabolic Bone Disease, a World Health Organization (WHO) Collaborating Center. Electronically signed by: Haim Teague MD 05/01/2025 10:51 AM EDT
== END 2025-05-01 10:04 | disposition home or self-care (01) ==
LOC: HO.MAMMO 10:03
PROVIDERS: PCP Internal Medicine; Visit Provider Internal Medicine
DX: Z13.820 Encounter for screening for osteoporosis (principal); Z78.0 Asymptomatic menopausal state
CPT/HCPCS: 77080

== ENCOUNTER → 2025-05-01 10:30 | Outpatient (BNV) | payer OTHER, SELFPAY | PROVIDERS: PCP Internal Medicine; Visit Provider Radiology Diagnostic Radiology | DX: E28.39 Other primary ovarian failure (principal) | CPT/HCPCS: 77080 ==

== ENCOUNTER 2025-06-03 14:04 | Outpatient (REF) | payer OTHER, SELFPAY ==
--- NOTE | ~2025-06-03 | XR_ITS ---
EXAMINATION: XR ANKLE 3 OR MORE VIEWS LEFT HISTORY: Z91.81 - History of falling COMPARISON: There are no prior studies available for comparison. FINDINGS: Four views of the left ankle are submitted. Osseous mineralization is normal. There is no fracture or dislocation. The joint spaces are preserved. There are calcaneal spurs at the plantar aspect and at the insertion of the Achilles tendon. The soft tissues are unremarkable. XR/XR ankle LT min 3V IMPRESSION: No evidence of fracture of the left ankle. Electronically signed by: Haim Teague MD 06/03/2025 02:37 PM EDT
== END 2025-06-03 14:05 | disposition home or self-care (01) ==
LOC: HO.XRAY 14:04
PROVIDERS: PCP Internal Medicine; Visit Provider Internal Medicine
DX: Z91.81 History of falling (principal)
CPT/HCPCS: 73610

== ENCOUNTER → 2025-06-03 14:07 | Outpatient (BNV) | payer OTHER, SELFPAY | PROVIDERS: PCP Internal Medicine; Visit Provider Radiology Diagnostic Radiology | DX: M77.32 Calcaneal spur, left foot (principal) | CPT/HCPCS: 73610 ==

== ENCOUNTER 2025-07-09 13:12 | Outpatient (AMB) | payer OTHER, SELFPAY ==
[2025-07-09 13:34] VITALS: BMI 23.7
--- NOTE | 2025-07-09 13:34 | MHC.OFFVIS ---
Vital Signs 07/09/25 13:34 Height 5 ft 1 in Weight 125 lb 5 oz BMI 23.7 Intake Visit Reasons: Left Foot Pain, Calcaneal Spur Intake Note: Odalys is a 69 year old male who presents to the office today as a new patient referred by her PCP Dr. Collado for left foot pain, calcaneal spur. Left heel/foot x-rays done a couple of years ago revealed (+) calcaneal spurs. Pt states the pain has been going on for over 3 months and she has tried OTC Ibuprofen and turmeric and found no relief. Pain starts in the bottom of the heel in the morning and travels to the sides and the back through out the day. Ankle X ray IMPRESSION: No evidence of fracture of the left ankle. Foot Xray- IMPRESSION: Calcaneal spurs. Small erosion dorsal aspect first metatarsal head. Allergies No Known Allergies (No Known Allergies*) Allergy (Verified 07/09/25 13:49) Medication List - Last Reconciled 07/09/25 by Ana Paula Alegre DPM atorvastatin 10 mg PO DAILY 90 days azithromycin take 500 mg today (day 1), then 250 mg for 4 days (days 2-5) PO losartan 75 mg (1.5 x 50 mg) PO DAILY 90 days methylprednisolone (Medrol (Aroldo)) PO PER PKG DIR multivitamin 1 tab PO DAILY HPI Comments Details: The patient is a 69-year-old female with a PMH as seen below presenting with left heel pain and discomfort. 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 She states she also experiences intermittent burning to the area. The pain is alleviated by rest and worsens with activity, particularly in the morning after waking up and throughout the day. The patient denies any numbness or tingling and reports no history of injury to the area. She has attempted self-care measures such as some stretching exercises, which have provided temporary relief. Patient also has taken Ibuprofen with mild relief. She denies any other pedal concerns. [facility] Medical History Hyperkalemia Impaired fasting glucose Benign essential hypertension Pure hypercholesterolemia Surgical History (Updated 03/26/25 @ 16:35 by Adelfo Byers MD) History of colonoscopy Family History Father No problems noted. Mother Dementia Family/Other Diabetes Hypertension Social History Housing: Condominium Alcohol intake: never Patient Tobacco Use Status: Never used Tobacco e-Cigarette/Vaping Use: Never Used Second Hand Smoke Exposure: Yes service: No Current occupational status: employed Current occupational exposures/hazards: No Cognitive needs: No Hearing needs: No Vision needs: No Review of Systems Const Details: - Musculoskeletal: Reports sharp stabbing left heel pain, denies numbness or tingling. Physical Exam Vital Signs: BMI result Body Mass Index 23.7 Extrem Other: LLE Focused Physical Exam: Derm: Skin supple and turgor WNL. No open lesions, abrasions, or wounds noted. No ecchymosis or discoloration noted. No clinical signs of infection. No edema noted. Vasc: DP/PT pulses palpable. CFT < 3 secs. Temp gradient warm to warm. Pedal hair present. No varicosities noted. Neuro: Protective sensations grossly intact. MSK: Pain on palpation to the heel, worse to the medial calcaneal tubercle. Pain along the medial plantar arch. Negative windlass mechanism. Mild pain to the posterior aspect of the heel. No pain to the Achilles tendon. No palpable dell. Mildly antalgic gait unassisted noted. No crepitus noted. Results Reviewed Results Reviewed: Podiatry Read of Left ankle xrays (06/03/25): Bone spur noted to the plantar and posterior aspect of the calcaneus. Joint space narrowing noted to the ankle joint. No acute fractures or dislocations. Left ankle xrays (06/03/25): FINDINGS: Four views of the left ankle are submitted. Osseous mineralization is normal. There is no fracture or dislocation. The joint spaces are preserved. There are calcaneal spurs at the plantar aspect and at the insertion of the Achilles tendon. The soft tissues are unremarkable. IMPRESSION: No evidence of fracture of the left ankle. Assessment & Plan Assessment & Plan (1) Pain of left heel: Code(s): M79.672 - Pain in left foot Category: Medical (2) Calcaneal spur, left foot: Code(s): M77.32 - Calcaneal spur, left foot Category: Medical (3) Plantar fasciitis, left: Code(s): M72.2 - Plantar fascial fibromatosis Category: Medical (4) Insertional tendinopathy of left Achilles tendon: Code(s): M76.62 - Achilles tendinitis, left leg Category: Medical (5) Other enthesopathy of left foot and ankle: Code(s): M77.52 - Other enthesopathy of left foot and ankle Category: Medical Plan Patient was informed and verbally consented to the use of an ambient scribe for clinic note documentation during this visit. I discussed with the patient that the primary diagnosis is plantar fasciitis with associated Achilles tendinitis, as evidenced by the presence of a bone spur. We reviewed the treatment plan, including the use of a Medrol Dosepak to reduce inflammation and pain, and emphasized the importance of stretching exercises to prevent further complications. I explained that if symptoms persist, further interventions such as night splints, injections, physical therapy or surgery may be considered. We agreed on a follow-up appointment in three weeks to evaluate progress. - Prescribed Medrol Dosepak for inflammation and pain management. - Recommend stretching exercises to alleviate tension on the plantar fascia and Achilles tendon. Provided patient with instructional form. - Advised use of arch support, inserts/insoles in shoes to reduce strain on the foot. - Advised patient to avoid barefoot walking and to wear supportive shoe gear. RTC in 3 weeks for re-evaluation. Medications: New methylprednisolone (Medrol (Aroldo)) PO PER PKG DIR 21 ea 0RF Plantar Fasciitis and Achilles tendinitis M72.2 - Plantar fascial fibromatosis, M76.62 - Achilles tendinitis, left leg, M77.32 - Calcaneal spur, left foot, M77.52 - Other enthesopathy of left foot and ankle, M79.672 - Pain in left foot Coding Level of Care Code New Pt Level 4 (13469) Diagnoses Pain of left heel M79.672 Calcaneal spur, left foot M77.32 Plantar fasciitis, left M72.2 Insertional tendinopathy of left Achilles tendon M76.62 Other enthesopathy of left foot and ankle M77.52 Time Spent (min) 50
== END 2025-07-09 14:00 | disposition home or self-care (01) ==
LOC: HO.HPODS 13:13
PROVIDERS: PCP Internal Medicine; Visit Provider Student in an Organized Health Care Education/Training Program
DX: M79.672 Pain in left foot (principal); M77.32 Calcaneal spur, left foot; M72.2 Plantar fascial fibromatosis; M76.62 Achilles tendinitis, left leg; M77.52 Other enthesopathy of left foot and ankle
CPT/HCPCS: 99204

== ENCOUNTER 2025-08-04 09:12 | Outpatient (AMB) | payer OTHER, SELFPAY ==
--- NOTE | 2025-08-04 09:19 | MHC.OFFVIS ---
Vital Signs 08/04/25 09:21 Height 5 ft 1 in Weight 125 lb BMI 23.6 Intake Visit Reasons: Left plantar fasciitis & Achilles tendinitis Intake Note: Odalys is a 69 year old female who presents today for a follow up on her left foot calcaneal spur. At her last visit she was prescribed Medrol dosepak for inflammation and pain management and she was advised to perform stretching exercises and the use of arch support and shoe insert. Patient states she has completed the course of Medrol dosepak, she has been performing the stretching exercises regularly as well and has found that her pain has significantly improved. Allergies No Known Allergies (No Known Allergies*) Allergy (Verified 08/04/25 09:22) HPI Comments Details: The patient is a 69-year-old female presenting for follow-up of left plantar fasciitis and Achilles insertional tendinitis. She reports that the pain was alleviated after taking the Medrol Dosepak, but she experiences minimal discomfort in the back of the heel, particularly after walking extensively. The patient has been consistent with the at-home stretching exercises. Patient also states she has been wearing supportive shoe gear. Patient rates her pain as 0.5/10. She denies any new pedal injuries. She denies any other pedal concerns. [facility] Medical History (Updated 07/09/25 @ 14:08 by Ana Paula Alegre DPM) Other enthesopathy of left foot and ankle Insertional tendinopathy of left Achilles tendon Plantar fasciitis, left Hyperkalemia Impaired fasting glucose Benign essential hypertension Pure hypercholesterolemia Surgical History (Updated 03/26/25 @ 16:35 by Adelfo Byers MD) History of colonoscopy Family History Father No problems noted. Mother Dementia Family/Other Diabetes Hypertension Social History Housing: Condominium Alcohol intake: never Patient Tobacco Use Status: Never used Tobacco e-Cigarette/Vaping Use: Never Used Second Hand Smoke Exposure: Yes service: No Current occupational status: employed Current occupational exposures/hazards: No Cognitive needs: No Hearing needs: No Vision needs: No Review of Systems Const Details: - Musculoskeletal: Reports minimal discomfort to the back of the left heel. Physical Exam Vital Signs: BMI result Body Mass Index 23.6 Extrem Other: LLE Focused Physical Exam: Derm: Skin supple and turgor WNL. No open lesions, abrasions, or wounds noted. No ecchymosis or discoloration noted. No clinical signs of infection. Vasc: DP/PT pulses palpable. CFT < 3 secs. Temp gradient warm to warm. Pedal hair present. No varicosities noted. No edema noted. Neuro: Protective sensations grossly intact. MSK: Minimal Pain on palpation to the posterior aspect of the heel. No pain on palpation to the medial calcaneal tubercle. Negative windlass mechanism. No pain to the Achilles tendon. No palpable dell. Mildly antalgic gait unassisted noted. No crepitus noted. Results Reviewed Results Reviewed: Podiatry Read of Left ankle xrays (06/03/25): Bone spur noted to the plantar and posterior aspect of the calcaneus. Joint space narrowing noted to the ankle joint. No acute fractures or dislocations. Left ankle xrays (06/03/25): FINDINGS: Four views of the left ankle are submitted. Osseous mineralization is normal. There is no fracture or dislocation. The joint spaces are preserved. There are calcaneal spurs at the plantar aspect and at the insertion of the Achilles tendon. The soft tissues are unremarkable. IMPRESSION: No evidence of fracture of the left ankle. Assessment & Plan Assessment & Plan (1) Varicose veins of bilateral lower extremities with pain: Code(s): I83.813 - Varicose veins of bilateral lower extremities with pain Category: Medical (2) Pain of left heel: Code(s): M79.672 - Pain in left foot Category: Medical (3) Insertional tendinopathy of left Achilles tendon: Code(s): M76.62 - Achilles tendinitis, left leg Category: Medical (4) Other enthesopathy of left foot and ankle: Code(s): M77.52 - Other enthesopathy of left foot and ankle Category: Medical (5) Plantar fasciitis, left: Code(s): M72.2 - Plantar fascial fibromatosis Category: Medical (6) Calcaneal spur, left foot: Code(s): M77.32 - Calcaneal spur, left foot Category: Medical Plan Patient was informed and verbally consented to the use of an ambient scribe for clinic note documentation during this visit. I discussed with the patient the presence of bone spurs to the calcaneus consistent with plantar fasciitis and insertional Achilles tendinitis. We reviewed the importance of continuing stretching exercises and wearing supportive footwear to manage her symptoms. I provided a prescription for shoe inserts and explained the process for obtaining them. - Continue at home stretching exercises. - Patient may take [id number] ibuprofen or Tylenol PRN for pain. - Wear supportive shoes and avoid walking barefoot to prevent further irritation. - Prescription for shoe inserts and orthopedic shoes to provide additional support and comfort. - If pain worsens we will consider injection, physical therapy, and further imaging. Surgical intervention will be considered if conservative treatment fails. RTC in 2 months for re-evaluation. Medications: New [Orthopedic Shoes and Inserts] Please dispense a pair of shoes and inserts (1-3) 1 ea 0RF I83.813 - Varicose veins of bilateral lower extremities with pain, M72.2 - Plantar fascial fibromatosis, M76.62 - Achilles tendinitis, left leg, M77.52 - Other enthesopathy of left foot and ankle, M79.672 - Pain in left foot Coding Level of Care Code Est Pt Level 4 (85886) Diagnoses Varicose veins of bilateral lower extremities with pain I83.813 Pain of left heel M79.672 Insertional tendinopathy of left Achilles tendon M76.62 Other enthesopathy of left foot and ankle M77.52 Plantar fasciitis, left M72.2 Calcaneal spur, left foot M77.32 Time Spent (min) 33
[2025-08-04 09:21] VITALS: BMI 23.6
== END 2025-08-04 09:40 | disposition home or self-care (01) ==
LOC: HO.HPODS 09:13
PROVIDERS: PCP Internal Medicine; Visit Provider Student in an Organized Health Care Education/Training Program
DX: I83.813 Varicose veins of bilateral lower extremities with pain (principal); M79.672 Pain in left foot; M76.62 Achilles tendinitis, left leg; M77.52 Other enthesopathy of left foot and ankle; M72.2 Plantar fascial fibromatosis; M77.32 Calcaneal spur, left foot
CPT/HCPCS: 99214